=== PATIENT | male | born 1970 | race Caucasian/White ===

== ENCOUNTER 2018-07-10 17:05 | Inpatient (IN) | payer MEDICAID ==
[~2018-07-10] VITALS: Ht 175.3 cm; Wt 65.8 kg
[2018-07-10] MEDS ORDERED: cloNIDine HCL 0.1 MG TAB ONE (17:19)
[2018-07-10] MEDS ORDERED: cloNIDine HCL 0.1 MG TAB PO ONE (17:30)
[2018-07-10 18:26] LABS: Basophils # (auto) 0 uL; Basophils % (auto) 0.4 % (0.0-2.0); Eosinophils # (auto) 0.1 uL; Eosinophils % (auto) 1.2 % (0.0-7.0); Hematocrit 52.4 % (41.0-53.0); Lymphocytes # (auto) 1.4 uL; Lymphocytes % (auto) 13.2 % (10.0-50.0); Mean Corpuscular Hemoglobin 29.2 pg (28.0-32.0); Mean Corpuscular Hgb Conc. 34.4 g/dL (32.0-36.0); Monocytes # (auto) 0.7 uL; Monocytes % (auto) 6.3 % (0.0-12.0); Neutrophils # (auto) 8.6 uL; Neutrophils % (auto) 78.9 % (37.0-80.0); Nucleated Red Blood Cells % 0.1 %; Platelet Count (auto) 283 10^3/uL (140-450); Red Blood Cells 6.16 10^6/uL (4.5-5.90); Red Cell Distribution Width 13.9 % (11.8-14.3)
[2018-07-10 18:38] LABS: Alanine Aminotransferase 30 U/L (16-61); Albumin 4.3 g/dL (3.4-5.0); Anion Gap 10 (5-15); Aspartate Aminotransferase 22 U/L (15-37); BUN/Creatinine Ratio 10.1; Blood Urea Nitrogen 18 mg/dL (7-18); Calcium 8.8 mg/dL (8.5-10.1); Carbon Dioxide 24 mmol/L (21-32); Chloride 100 mmol/L (98-107); GFR African American 53 mL/min; GFR Non-African American 44 mL/min; Glucose 95 mg/dL (74-106); Potassium 3.8 mmol/L (3.5-5.1); Sodium 134 mmol/L (136-145)
[2018-07-10 18:41] LABS: Alkaline Phosphatase 106 U/L (45-117); Bilirubin, Total 0.9 mg/dL (0.2-1.0); Total Protein 8.9 g/dL (6.4-8.2)
[2018-07-10 18:44] LABS: Amylase 36 U/L (25-115); Lipase 128 U/L (73-393); Magnesium 1.5 mg/dL (1.6-2.6)
[2018-07-10] MEDS ORDERED: LABETALOL HCL 5 MG/ML ML 20ML VIAL IV ONE (19:15)
[2018-07-10] MEDS ORDERED: MAGNESIUM SULFATE 1GM/100ML 200 ML IV ONE (19:16)
[2018-07-10 19:18] LABS: INR 0.97 (0.9-1.15); Partial Thromboplastin Time 33.6 sec (23.78-33.04); Prothrombin Time 10.4 sec (9.27-12.13)
[2018-07-10] MEDS: MAGNESIUM SULFATE 1GM/100ML 100 ML IV SCH ×2 (19:36→20:15)
[2018-07-10] MEDS ORDERED: MAGNESIUM SULFATE 1GM/100ML 100 ML IV SCH (21:45)
[2018-07-10] MEDS ORDERED: TEMAZEPAM 15 MG CAP PO PRN (22:15)
[2018-07-10] MEDS ORDERED: cloNIDine HCL 0.1 MG TAB PO PRN (22:15)
[2018-07-10] MEDS ORDERED: HYDROcodone-ACET 5/325MG TAB PO PRN (22:15)
[2018-07-10] MEDS ORDERED: ACETAMINOPHEN 325 MG TAB PO PRN (22:15)
[2018-07-10] MEDS ORDERED: ONDANSETRON HCL 4 MG/2 ML VIAL IV PRN (22:15)
[2018-07-10] MEDS ORDERED: hydrALAZINE HCL 20 MG/ML VL IV ONE (22:30)
[2018-07-10 22:50] VITALS: BP 164/106
[2018-07-10] MEDS ORDERED: ATOR10TA PO (23:38)
[2018-07-11 04:37] VITALS: BP 145/90
[2018-07-11 05:43] LABS: Basophils # (auto) 0.1 uL; Basophils % (auto) 0.8 % (0.0-2.0); Eosinophils # (auto) 0.2 uL; Eosinophils % (auto) 2.6 % (0.0-7.0); Hematocrit 45.1 % (41.0-53.0); Hemoglobin 15.7 g/dL (13.5-17.5); Lymphocytes # (auto) 1.8 uL; Lymphocytes % (auto) 23.2 % (10.0-50.0); Mean Corpuscular Hemoglobin 29.1 pg (28.0-32.0); Mean Corpuscular Hgb Conc. 34.9 g/dL (32.0-36.0); Mean Corpuscular Volume 83.5 fL (80.0-100.0); Monocytes # (auto) 0.7 uL; Monocytes % (auto) 8.7 % (0.0-12.0); Neutrophils % (auto) 64.7 % (37.0-80.0); Nucleated Red Blood Cells % 0.1 %; Platelet Count (auto) 227 10^3/uL (140-450); Red Cell Distribution Width 13.8 % (11.8-14.3); White Blood Cell 7.7 10^3/uL (4.4-10.8)
[2018-07-11 06:02] LABS: Albumin 3.7 g/dL (3.4-5.0); BUN/Creatinine Ratio 15.7; Calcium 8.3 mg/dL (8.5-10.1); Potassium 3.7 mmol/L (3.5-5.1)
[2018-07-11 06:05] LABS: Bilirubin, Total 0.5 mg/dL (0.2-1.0); Total Protein 7.2 g/dL (6.4-8.2)
[2018-07-11 07:32] LABS: Urine Bacteria NONE SEEN /hpf (None Seen); Urine Blood Negative /uL (Negative); Urine Mucus FEW (None Seen); Urine Specific Gravity 1.032 (1.001-1.035); Urine WBC 2 /hpf (0 - 3)
[2018-07-11 07:56] VITALS: BP 157/97
[2018-07-11 08:00] VITALS: BP 155/103
[2018-07-11] MEDS: FAMOTIDINE 20 MG TAB PO SCH ×2 (09:32→21:43)
[2018-07-11 11:34] VITALS: BP 153/107
[2018-07-11] MEDS ORDERED: PANT40TA2 PO (12:42)
[2018-07-11] MEDS ORDERED: ASPI81CH43 PO (12:42)
[2018-07-11] MEDS ORDERED: LISI-646 PO (12:42)
[2018-07-11] MEDS ORDERED: LISINOPRIL 10 MG TAB PO ONE ×2 (12:45→14:15)
[2018-07-11] MEDS ORDERED: ASPirin-EC 81 mg tab PO ONE (14:15)
[2018-07-11] MEDS ORDERED: METOPROLOL TARTRATE 25 MG TAB PO ONE (14:15)
[2018-07-11 16:32] VITALS: BP 125/77
[2018-07-11 18:33] LABS: Alcohol, Urine < 3.0 mg/dL (0-5); Amphetamine Screen, Urine POSITIVE (NEGATIVE); Barbiturate Scree,Urine NEGATIVE (NEGATIVE); Benzodiazephine Screen, Urine NEGATIVE (NEGATIVE); Cannabinoid Screen, Urine POSITIVE (NEGATIVE); Cocaine Screen, Urine NEGATIVE (NEGATIVE); Opiate Scree,Urine NEGATIVE (NEGATIVE); Phencyclidine Screen, Urine NEGATIVE (NEGATIVE)
[2018-07-11] MEDS: METOPROLOL TARTRATE 25 MG TAB PO SCH (21:43)
[2018-07-11 22:00] VITALS: BP 109/78
[2018-07-11] MEDS ORDERED: ATORVASTATIN 20 MG TAB PO SCH (22:00)
[2018-07-12 05:00] VITALS: BP 124/81
[2018-07-12 07:32] LABS: Potassium 4.4 mmol/L (3.5-5.1)
[2018-07-12 07:41] LABS: Albumin 3.7 g/dL (3.4-5.0); Bilirubin, Total 0.7 mg/dL (0.2-1.0); Calcium 9.2 mg/dL (8.5-10.1); Total Protein 7.5 g/dL (6.4-8.2)
[2018-07-12 08:43] VITALS: BP 121/75
[2018-07-12] MEDS: FAMOTIDINE 20 MG TAB PO SCH (09:31)
[2018-07-12] MEDS: METOPROLOL TARTRATE 25 MG TAB PO SCH (09:32)
[2018-07-12] MEDS ORDERED: LISINOPRIL 20 MG TAB PO SCH (10:00)
[2018-07-12] MEDS ORDERED: ASPirin-EC 81 mg tab PO SCH (10:00)
[2018-07-12] MEDS ORDERED: LISINOPRIL 10 MG TAB PO SCH (10:00)
[2018-07-12] MEDS ORDERED: ATOR20TA50 PO (10:07)
[2018-07-12] MEDS ORDERED: LISI10TA6 PO (10:07)
[2018-07-12] MEDS ORDERED: MET25T PO (10:07)
[2018-07-12] MEDS ORDERED: LISI-646 PO (10:09)
[2018-07-12 11:07] VITALS: BP 121/75
[2018-07-12 13:06] VITALS: BP 125/81
== END 2018-07-12 13:03 | disposition home or self-care (01) | DRG 241 ==
LOC: ER 17:09 → OVERFLOW 17:10 → WEST WING 22:39
PROVIDERS: ADMIT Nurse Practitioner; ATTEND Internal Medicine
DX: K29.70 Gastritis, unspecified, without bleeding (principal); N17.0 Acute kidney failure with tubular necrosis; I10 Essential (primary) hypertension; E83.42 Hypomagnesemia; E86.0 Dehydration; F17.200 Nicotine dependence, unspecified, uncomplicated; I12.9 Hypertensive chronic kidney disease with stage 1 through stage 4 chronic kidney disease, or unspecified chronic kidney disease; N18.2 Chronic kidney disease, stage 2 (mild); F15.90 Other stimulant use, unspecified, uncomplicated; F12.90 Cannabis use, unspecified, uncomplicated; Z82.49 Family history of ischemic heart disease and other diseases of the circulatory system; Z86.73 Personal history of transient ischemic attack (TIA), and cerebral infarction without residual deficits; Z87.19 Personal history of other diseases of the digestive system; Z91.19 Patient's noncompliance with other medical treatment and regimen
CPT/HCPCS: 36415; 71046; 74176; 80053; 80061; 80307; 81001; 82150; 83690; 83735; 84443; 84484; 85025; 85610; 85730; 93005; 94761; 96365; 96375

== ENCOUNTER 2019-04-10 18:11 | Emergency (ER) | payer MEDICAID ==
[~2019-04-10] VITALS: Ht 175.3 cm; Wt 74.8 kg
[~2019-04-10 18:11] MED LIST: ASPI81CH43 PO; ATOR20TA50 PO; LISI-646 PO; MET25T PO; PANT40TA2 PO
[2019-04-10] MEDS ORDERED: SODIUM CHLORIDE 0.9% 2,000 ML IV ONE (19:15)
[2019-04-10 19:28] LABS: Basophils # (auto) 0 uL; Basophils % (auto) 0.6 % (0.0-2.0); Eosinophils # (auto) 0.1 uL; Eosinophils % (auto) 1.9 % (0.0-7.0); Hematocrit 42.9 % (41.0-53.0); Hemoglobin 14.1 g/dL (13.5-17.5); Lymphocytes # (auto) 1.6 uL; Lymphocytes % (auto) 20.9 % (10.0-50.0); Mean Corpuscular Hgb Conc. 32.9 g/dL (32.0-36.0); Mean Corpuscular Volume 85.2 fL (80.0-100.0); Monocytes # (auto) 0.6 uL; Monocytes % (auto) 7.7 % (0.0-12.0); Neutrophils # (auto) 5.3 uL; Neutrophils % (auto) 68.9 % (37.0-80.0); Platelet Count (auto) 189 10^3/uL (140-450); Red Blood Cells 5.04 10^6/uL (4.5-5.90); White Blood Cell 7.7 10^3/uL (4.4-10.8)
[2019-04-10 19:45] LABS: Alanine Aminotransferase 33 U/L (16-61); Albumin 3.6 g/dL (3.4-5.0); Anion Gap 9 (5-15); BUN/Creatinine Ratio 10.6; Blood Urea Nitrogen 15 mg/dL (7-18); Carbon Dioxide 24 mmol/L (21-32); Chloride 112 mmol/L (98-107); GFR African American 69 mL/min; GFR Non-African American 57 mL/min; Glucose 99 mg/dL (74-106); Potassium 3.7 mmol/L (3.5-5.1); Sodium 145 mmol/L (136-145)
[2019-04-10 19:51] LABS: Alkaline Phosphatase 78 U/L (45-117); Aspartate Aminotransferase 10 U/L (15-37); Bilirubin, Total 0.4 mg/dL (0.2-1.0); Total Protein 6.9 g/dL (6.4-8.2)
[2019-04-10] MEDS ORDERED: NIFEdipine 10 MG CAP PO ONE (21:15)
[2019-04-11 02:12] VITALS: BP 155/103
== END 2019-04-11 02:23 | disposition home or self-care (01) ==
LOC: EDBD 18:11 → ER 18:12
DX: T67.5XXA Heat exhaustion, unspecified, initial encounter (principal); I10 Essential (primary) hypertension; F17.210 Nicotine dependence, cigarettes, uncomplicated; Z86.73 Personal history of transient ischemic attack (TIA), and cerebral infarction without residual deficits; Z79.82 Long term (current) use of aspirin; Z79.899 Other long term (current) drug therapy
CPT/HCPCS: 36415; 80053; 84484; 85025; 93005; 94761; 99284; J7030

== ENCOUNTER 2019-04-26 21:46 | Emergency (ER) | payer MEDICAID ==
[~2019-04-26] VITALS: Ht 175.3 cm; Wt 70.3 kg
[2019-04-26 22:20] LABS: Basophils # (auto) 0 uL; Basophils % (auto) 0.7 % (0.0-2.0); Eosinophils # (auto) 0.1 uL; Eosinophils % (auto) 1.7 % (0.0-7.0); Hematocrit 44.6 % (41.0-53.0); Hemoglobin 14.9 g/dL (13.5-17.5); Lymphocytes # (auto) 1.3 uL; Lymphocytes % (auto) 20.4 % (10.0-50.0); Mean Corpuscular Hemoglobin 28.4 pg (28.0-32.0); Mean Corpuscular Hgb Conc. 33.4 g/dL (32.0-36.0); Mean Corpuscular Volume 85.2 fL (80.0-100.0); Monocytes # (auto) 0.4 uL; Monocytes % (auto) 5.7 % (0.0-12.0); Neutrophils # (auto) 4.5 uL; Neutrophils % (auto) 71.5 % (37.0-80.0); Nucleated Red Blood Cells % 0.1 %; Platelet Count (auto) 199 10^3/uL (140-450); Red Blood Cells 5.24 10^6/uL (4.5-5.90); Red Cell Distribution Width 14.1 % (11.8-14.3); White Blood Cell 6.3 10^3/uL (4.4-10.8)
[2019-04-26 22:39] LABS: Acetaminophen < 2.0 ug/mL (10-30); Salicylate < 1.7 mg/dL (2.8-20.0)
[2019-04-26 22:40] LABS: Alanine Aminotransferase 33 U/L (16-61); Albumin 3.8 g/dL (3.4-5.0); Anion Gap 7 (5-15); Blood Alcohol < 3.0 mg/dL (0-5); Blood Urea Nitrogen 21 mg/dL (7-18); Calcium 8.9 mg/dL (8.5-10.1); Carbon Dioxide 26 mmol/L (21-32); Chloride 108 mmol/L (98-107); Glucose 131 mg/dL (74-106); Potassium 3.9 mmol/L (3.5-5.1); Sodium 141 mmol/L (136-145)
[2019-04-26 22:43] LABS: Alkaline Phosphatase 72 U/L (45-117); Aspartate Aminotransferase 13 U/L (15-37); BUN/Creatinine Ratio 14.2; Bilirubin, Total 0.6 mg/dL (0.2-1.0); GFR African American 66 mL/min; GFR Non-African American 54 mL/min; Total Protein 7.1 g/dL (6.4-8.2)
[2019-04-26] MEDS ORDERED: SODIUM CHL 0.9% 500 ML IV ONE (23:45)
[2019-04-27] LABS: INR 0.93 (0.9-1.15); Partial Thromboplastin Time 28.2 sec (23.64-32.05)
[2019-04-27 01:00] VITALS: BP 158/97
[2019-04-27] MEDS ORDERED: SODIUM CHLORIDE 0.9% 500 ML IV ONE (01:10)
== END 2019-04-27 01:57 | disposition home or self-care (01) ==
LOC: ER 21:48
DX: N28.9 Disorder of kidney and ureter, unspecified (principal); Z91.81 History of falling
CPT/HCPCS: 36415; 70450; 80053; 80320; 80329; 84484; 85025; 85610; 85730; 94761; 99284; J7040

== ENCOUNTER 2019-05-31 16:18 | Emergency (ER) | payer MEDICAID ==
[~2019-05-31] VITALS: Ht 175.3 cm; Wt 70.3 kg
[2019-05-31] MEDS ORDERED: cloNIDine HCL 0.1 MG TAB ONE (16:27)
[2019-05-31] MEDS ORDERED: cloNIDine HCL 0.1 MG TAB PO ONE (16:30)
[2019-05-31 17:43] LABS: Basophils # (auto) 0.1 uL; Eosinophils # (auto) 0.1 uL; Eosinophils % (auto) 2.4 % (0.0-7.0); Lymphocytes # (auto) 1.1 uL; Lymphocytes % (auto) 18.2 % (10.0-50.0); Mean Corpuscular Hemoglobin 28.9 pg (28.0-32.0); Mean Corpuscular Hgb Conc. 34.1 g/dL (32.0-36.0); Mean Corpuscular Volume 84.8 fL (80.0-100.0); Monocytes # (auto) 0.4 uL; Monocytes % (auto) 6.5 % (0.0-12.0); Neutrophils # (auto) 4.2 uL; Neutrophils % (auto) 71.9 % (37.0-80.0); Platelet Count (auto) 198 10^3/uL (140-450); Red Blood Cells 4.84 10^6/uL (4.5-5.90); Red Cell Distribution Width 13.8 % (11.8-14.3); White Blood Cell 5.9 10^3/uL (4.4-10.8)
[2019-05-31 18:05] LABS: Alanine Aminotransferase 26 U/L (16-61); Aspartate Aminotransferase 17 U/L (15-37); BUN/Creatinine Ratio 12.9; Blood Urea Nitrogen 15 mg/dL (7-18); Calcium 8.7 mg/dL (8.5-10.1); Carbon Dioxide 27 mmol/L (21-32); GFR African American 87 mL/min; GFR Non-African American 72 mL/min; Glucose 92 mg/dL (74-106)
[2019-05-31 18:09] LABS: Alkaline Phosphatase 80 U/L (45-117); Anion Gap 7 (5-15); Bilirubin, Total 0.6 mg/dL (0.2-1.0); Chloride 104 mmol/L (98-107); Potassium 4.2 mmol/L (3.5-5.1); Sodium 138 mmol/L (136-145); Total Protein 7.4 g/dL (6.4-8.2)
[2019-05-31] MEDS ORDERED: KETOROLAC TROMETH 30 MG/ML 1ML VIAL IV ONE (20:15)
[2019-05-31 21:04] VITALS: BP 146/94
== END 2019-05-31 20:14 | disposition home or self-care (01) ==
LOC: ER 16:18 → EDUNIT# 16:18 → EDBD 16:18 → ER 20:14
DX: I16.0 Hypertensive urgency (principal); M79.672 Pain in left foot; M79.671 Pain in right foot; I10 Essential (primary) hypertension; Z79.82 Long term (current) use of aspirin; Z79.899 Other long term (current) drug therapy; Z86.73 Personal history of transient ischemic attack (TIA), and cerebral infarction without residual deficits
CPT/HCPCS: 36415; 80053; 84484; 85025; 93005; 96374; 99284; J1885

== ENCOUNTER 2019-06-14 10:01 | Emergency (ER) | payer MEDICAID ==
[~2019-06-14] VITALS: Ht 175.3 cm; Wt 71.2 kg
[2019-06-14 11:14] VITALS: BP 174/93
== END 2019-06-14 11:30 | disposition home or self-care (01) ==
LOC: ER 10:01
DX: S96.912A Strain of unspecified muscle and tendon at ankle and foot level, left foot, initial encounter (principal); S96.911A Strain of unspecified muscle and tendon at ankle and foot level, right foot, initial encounter; I10 Essential (primary) hypertension; Z79.82 Long term (current) use of aspirin; Z79.899 Other long term (current) drug therapy; Z86.73 Personal history of transient ischemic attack (TIA), and cerebral infarction without residual deficits; X58.XXXA Exposure to other specified factors, initial encounter; Y93.89 Activity, other specified; Y99.8 Other external cause status; Y92.89 Other specified places as the place of occurrence of the external cause

== ENCOUNTER 2022-06-23 01:01 | Emergency (ER) | payer MEDICARE, MEDICAID ==
[~2022-06-23] VITALS: Ht 175.3 cm; Wt 66.8 kg
[~2022-06-23 01:01] MED LIST changes: -LISI-646 PO; +LISI20TA28 PO
[2022-06-23 03:16] LABS: Basophils # (auto) 0.1 10 ^3/uL (0-0.2); Basophils % (auto) 0.7 % (0.0-2.0); Eosinophils # (auto) 0.3 10 ^3/uL (0-0.8); Hematocrit 50.1 % (41.0-53.0); Hemoglobin 16.5 g/dL (13.5-17.5); Lymphocytes # (auto) 1.5 10 ^3/uL (0.4-5.4); Lymphocytes % (auto) 17.9 % (10.0-50.0); Mean Corpuscular Hemoglobin 27.5 pg (28.0-32.0); Mean Corpuscular Volume 83.4 fL (80.0-100.0); Monocytes # (auto) 0.6 10 ^3/uL (0-1.3); Monocytes % (auto) 6.4 % (0.0-12.0); Neutrophils # (auto) 6.2 10 ^3/uL (1.6-8.6); Nucleated Red Blood Cells % 0.1 %; White Blood Cell 8.6 10^3/uL (4.4-10.8)
[2022-06-23 03:36] LABS: Albumin 4.1 g/dL (3.4-5.0); BUN/Creatinine Ratio 16.1; Calcium 9.4 mg/dL (8.5-10.1)
[2022-06-23 03:39] LABS: Bilirubin, Total 0.6 mg/dL (0.2-1.0); Total Protein 7.9 g/dL (6.4-8.2)
[2022-06-23] MEDS ORDERED: DICYCLOMINE HCL (10MG/ML) 2 ML AMPULE IM ONE (05:00)
[2022-06-23 05:10] VITALS: BP 148/102
== END 2022-06-23 05:17 | disposition home or self-care (01) ==
LOC: ER 01:02
DX: R10.13 Epigastric pain (principal); I10 Essential (primary) hypertension; Z86.73 Personal history of transient ischemic attack (TIA), and cerebral infarction without residual deficits
CPT/HCPCS: 36415; 74176; 80053; 85025; 96372; 99284; J0500

== ENCOUNTER 2022-09-11 16:14 | Emergency (ER) | payer MEDICARE, MEDICAID ==
[~2022-09-11] VITALS: Ht 175.3 cm; Wt 150.0 kg
[2022-09-11 18:09] LABS: Basophils # (auto) 0 10 ^3/uL (0-0.2); Basophils % (auto) 0.4 % (0.0-2.0); Eosinophils # (auto) 0 10 ^3/uL (0-0.8); Eosinophils % (auto) 0.5 % (0.0-7.0); Hematocrit 43.9 % (41.0-53.0); Hemoglobin 14.8 g/dL (13.5-17.5); Lymphocytes # (auto) 0.8 10 ^3/uL (0.4-5.4); Lymphocytes % (auto) 8.9 % (10.0-50.0); Mean Corpuscular Hemoglobin 28.3 pg (28.0-32.0); Mean Corpuscular Hgb Conc. 33.8 g/dL (32.0-36.0); Mean Corpuscular Volume 83.8 fL (80.0-100.0); Monocytes # (auto) 0.7 10 ^3/uL (0-1.3); Monocytes % (auto) 8.1 % (0.0-12.0); Neutrophils # (auto) 7.3 10 ^3/uL (1.6-8.6); Neutrophils % (auto) 82.1 % (37.0-80.0); Red Blood Cells 5.24 10^6/uL (4.5-5.90); Red Cell Distribution Width 13.2 % (11.8-14.3); White Blood Cell 8.9 10^3/uL (4.4-10.8)
[2022-09-11 18:13] LABS: Albumin 3.7 g/dL (3.4-5.0); BUN/Creatinine Ratio 23.6; Calcium 9.6 mg/dL (8.5-10.1); Potassium 4.3 mmol/L (3.5-5.1)
[2022-09-11 18:16] LABS: Bilirubin, Total 0.6 mg/dL (0.2-1.0); Total Protein 6.9 g/dL (6.4-8.2)
[2022-09-11 18:28] LABS: INR 0.93 (0.9-1.15); Partial Thromboplastin Time 25.7 sec (24.6-33.4)
[2022-09-11] MEDS ORDERED: MORPHINE SULFATE 4 MG/ML SYR/VIAL IV ONE (19:45)
[2022-09-11] MEDS ORDERED: ONDANSETRON HCL 4 MG/2 ML VIAL IV ONE (19:45)
[2022-09-11 20:19] VITALS: BP 155/106
[2022-09-11] MEDS ORDERED: HYDR-4902 PO (21:57)
== END 2022-09-11 21:58 | disposition home or self-care (01) ==
LOC: ER 16:14
DX: M79.672 Pain in left foot (principal); M79.671 Pain in right foot; E78.5 Hyperlipidemia, unspecified; I10 Essential (primary) hypertension; Z86.73 Personal history of transient ischemic attack (TIA), and cerebral infarction without residual deficits
CPT/HCPCS: 36415; 73700; 80053; 85025; 85610; 85730; 96374; 96375; 99284; J2270; J2405

== ENCOUNTER 2022-09-29 13:40 | Emergency (ER) | payer MEDICARE, MEDICAID ==
[~2022-09-29] VITALS: Ht 175.3 cm; Wt 66.8 kg
[~2022-09-29 13:40] MED LIST changes: +HYDR-4902 PO
[2022-09-29 14:06] VITALS: BP 141/100
[2022-09-29 15:31] LABS: Basophils # (auto) 0.1 10 ^3/uL (0-0.2); Basophils % (auto) 0.6 % (0.0-2.0); Eosinophils # (auto) 0.1 10 ^3/uL (0-0.8); Eosinophils % (auto) 0.5 % (0.0-7.0); Hematocrit 42.3 % (41.0-53.0); Hemoglobin 14.4 g/dL (13.5-17.5); Lymphocytes # (auto) 1.7 10 ^3/uL (0.4-5.4); Mean Corpuscular Hemoglobin 28.1 pg (28.0-32.0); Mean Corpuscular Volume 82.7 fL (80.0-100.0); Monocytes % (auto) 8.1 % (0.0-12.0); Neutrophils # (auto) 9.9 10 ^3/uL (1.6-8.6); Neutrophils % (auto) 77.8 % (37.0-80.0); Nucleated Red Blood Cells % 0.2 %; Red Blood Cells 5.12 10^6/uL (4.5-5.90); Red Cell Distribution Width 13.4 % (11.8-14.3); White Blood Cell 12.7 10^3/uL (4.4-10.8)
[2022-09-29 15:47] LABS: Albumin 3.5 g/dL (3.4-5.0); Calcium 9.9 mg/dL (8.5-10.1); Potassium 4.3 mmol/L (3.5-5.1)
[2022-09-29 15:49] LABS: BUN/Creatinine Ratio 21.2
[2022-09-29 15:52] LABS: Bilirubin, Total 0.2 mg/dL (0.2-1.0); Total Protein 7.2 g/dL (6.4-8.2)
[2022-09-29] MEDS ORDERED: CEPH500C PO (16:11)
== END 2022-09-29 17:05 | disposition home or self-care (01) ==
LOC: ER 13:40
DX: L03.115 Cellulitis of right lower limb (principal); L03.116 Cellulitis of left lower limb; I10 Essential (primary) hypertension; E78.5 Hyperlipidemia, unspecified; Z86.73 Personal history of transient ischemic attack (TIA), and cerebral infarction without residual deficits; Z79.82 Long term (current) use of aspirin; Z79.899 Other long term (current) drug therapy
CPT/HCPCS: 36415; 73700; 80053; 85025; 85652

== ENCOUNTER 2024-12-25 17:54 | Inpatient (IN) | payer MEDICAID, MEDICARE, OTHER ==
[~2024-12-25] VITALS: Ht 123.4 cm; Wt 60.4 kg
[~2024-12-25 17:54] MED LIST changes: +CEPH500C PO; -LISI20TA28 PO; +LISI20TA56 PO
--- NOTE | 2024-12-25 18:25 | ECG ---
[facility] Test Date: 2024-12-25 Test Time: 18:00:21 Pat Name: TAINA QUILES Department: ED Room: 0219T Gender: M [employer]inder [employer] Operator: LETHA : 1970 Requested By: TRISH VILLAFUERTE Order Number: [id number] Reading MD: Cj Connelly Measurements Intervals [place] Rate: 96 P: 75 [place]: 135 QRS: 54 QRSD: 143 T: 206 QT: 403 QTc: 510 Interpretive Statements Sinus rhythm Right atrial enlargement Left bundle branch block Baseline wander in lead(s) V3 Electronically Signed On 12-28-2024 22:03:44 PDT by Cj Connelly Please click the below link to view image of tracing.
[2024-12-25] MEDS: PIPERACILLIN-TAZO 4.5GM 100 ML IV ONE (19:23)
[2024-12-25] MEDS: SODIUM CHLORIDE 0.9% 1,550 ML IV ONE (19:23)
--- NOTE | 2024-12-25 19:33 | ED.PDOC ---
History of Present Illness HPI Comments 54 y/o M is BIBA with c/o shortness of breath and generalized weakness, today. Per EMS report, patient's landlord called after finding patient, endorsing on patient complaining of symptoms since this unprovoked onset . On scene, patient was noted to have been lethargic and slow to respond but still able to answer questions, with a Spo2 in the mid-80's. En route, patient was stated to have been given breathing treatment. At time of assessment, patient reports no chest pain, cough, congestion, fever, chills, or other associated symptoms or modifies at this time. Chief Complaint: General Weakness Time Seen by MD: 18:20 Primary Care Provider: UNKNOWN Reviewed Notes: Nurses Notes, Medications, Allergies Allergies: Coded Allergies: NO KNOWN ALLERGIES (Unverified , 07/10/18) Home Meds Active Scripts Cephalexin Monohydrate (Cephalexin) 500 Mg Cap, 1 CAP PO TID, #30 CAP Prov:GRANT HANSON MD 09/29/22 Hydrocodone-Acetaminophen (Hydrocodone Bitartrate/AC 5-325 mg) 1 Tab Tab, 1 TAB PO Q6HP PRN for 5 Days, #20 TAB Prov:GRANT HANSON MD 09/11/22 Lisinopril (Lisinopril) 20 Mg Tab, 1 TAB PO DAILY, #60 TAB 0 Refills Prov:ATA CROCKETT MD 07/12/18 Metoprolol Tartrate (Lopressor) 25 Mg Tb, 25 MG PO BID, #120 Prov:ATA CROCKETT MD 07/12/18 Atorvastatin Calcium (ATORVASTATIN CALCIUM) 20 Mg Tab, 20 MG PO HS, #60 TAB Prov:ATA CROCKETT MD 07/12/18 Pantoprazole Sodium Sesquihydr (Protonix) 40 Mg Tab, 40 MG PO DAILY, #60 TAB Prov:ATA CROCKETT MD 07/11/18 Aspirin (Asa) 81 Mg Ch, 81 MG PO DAILY, #60 Prov:ATA CROCKETT MD 07/11/18 Information Source: Patient, Emergency Med Personnel Mode of Arrival: EMS Past Medical History PAST MEDICAL HISTORY: CVA, High Lipids, HTN, TIA Surgical History (Other): bilateral BKA Family History Family History: Reviewed,noncontributory to illness Social History Smoker: Non-Smoker Alcohol: Denies ETOH Use Drugs: Denies Drug Use Lives In: Home All Other Systems: Reviewed and Negative (Comprehensive systems review obtained and negative except for what is stated in the HPI.) Physical Exam General Appearance: No Apparent Distress, Normal HEENT: Normal ENT Inspection, Pharynx Normal, TMs Normal Neck: Full Range of Motion, Non-Tender, Normal, Normal Inspection Respiratory: Chest Non-Tender, No Accessory Muscle Use, No Respiratory Distress, Other (bilateral coarse breathe sounds) Cardiovascular: No Edema, No JVD, No Murmur, No Gallop, Normal Peripheral Pulses, Regular Rate/Rhythm Breast Exam: Deferred Gastrointestinal: No Organomegaly, Non Tender, No Pulsatile Mass, Normal Bowel Sounds, Soft Genitalia: Deferred Pelvic: Deferred Rectal: Deferred Extremities: No calf tenderness, Normal capillary refill, Normal inspection, Normal range of motion, Non-tender, No pedal edema, Other (bilateral below knee ampuations) Musculoskeletal : Apperance: Normal Neurologic: Alert, refrigerated company driver II-XII nml as Tested, No Motor Deficits, Normal Affect, Normal Mood, No Sensory Deficits Cerebellar Function: Normal Reflexes: Normal Skin: Dry, Normal Color, Warm Lymphatic: No Adenopathy Was a procedure done? Was a procedure done?: No EKG EKG : Pulse Rate (adult): 96 [place]: Normal Cardiac Rhythm: NSR Block: LBBB Hypertrophy: LUDMILA ST: Normal Differential Dx Considerations may include: URI, viral syndrome, PNA, dehydration, electrolyte imbalance, sepsis, among others X-Ray, Labs, Meds, VS Vital Signs Date Time Temp Pulse Resp B/P (MAP) Pulse Ox O2 Delivery O2 Flow Rate FiO2 12/25/24 23:00 119 15 135/89 (104) 97 12/25/24 22:14 117 14 98 Nasal Cannula* 2 28 12/25/24 20:56 97.9 105 14 127/89 (102) 99 97.9 12/25/24 19:40 97.5 97 20 137/89 (105) 91 97.5 12/25/24 19:33 96 12/25/24 18:15 97.5 102 20 159/116 (130) 99 97.5 12/25/24 18:00 96 Lab Test 12/25/24 22:57 12/25/24 21:05 12/25/24 18:59 Range/Units Lactic Acid Level 2.6 *H 2.7 *H 0.4-2.0 mmol/L Troponin I High Sensitivity 125 *H 121 *H 137 *H </=54 ng/L White Blood Count 18.1 H 4.4-10.8 10^3/uL Red Blood Count 5.97 H 4.5-5.90 10^6/uL Hemoglobin 16.2 13.5-17.5 g/dL Hematocrit 52.5 41.0-53.0 % Mean Corpuscular Volume 87.9 80.0-100.0 fL Mean Corpuscular Hemoglobin 27.0 L 28.0-32.0 pg Mean Corpuscular Hemoglobin Concent 30.8 L 32.0-36.0 g/dL Red Cell Distribution Width 15.3 H 11.8-14.3 % Platelet Count 183 140-450 10^3/uL Mean Platelet Volume 7.9 6.9-10.8 fL Neutrophils (%) (Auto) 83.7 H 37.0-80.0 % Lymphocytes (%) (Auto) 7.1 L 10.0-50.0 % Monocytes (%) (Auto) 8.3 0.0-12.0 % Eosinophils (%) (Auto) 0.7 0.0-7.0 % Basophils (%) (Auto) 0.2 0.0-2.0 % Neutrophils # (Auto) 15.2 H 1.6-8.6 10 ^3/uL Lymphocytes # (Auto) 1.3 0.4-5.4 10 ^3/uL Monocytes # (Auto) 1.5 H 0-1.3 10 ^3/uL Eosinophils # (Auto) 0.1 0-0.8 10 ^3/uL Basophils # (Auto) 0 0-0.2 10 ^3/uL Nucleated Red Blood Cells 0.1 % Sodium Level 138 136-145 mmol/L Potassium Level 4.8 3.5-5.1 mmol/L Chloride Level 104 98-107 mmol/L Carbon Dioxide Level 24 20-31 mmol/L Anion Gap 10 5-15 Blood Urea Nitrogen 13 9-23 mg/dL Creatinine 1.25 0.700-1.30 mg/dL Glomerular Filtration Rate Calc 69 >90 mL/min BUN/Creatinine Ratio 10.4 10.0-20.0 Serum Glucose 91 74-106 mg/dL Calcium Level 9.2 8.7-10.4 mg/dL Total Bilirubin 0.9 0.2-1.0 mg/dL Aspartate Amino Transferase (AST) 34 13-40 U/L Alanine Aminotransferase (ALT) 21 7-40 U/L Alkaline Phosphatase 123 H 46-116 U/L Total Protein 7.1 5.7-8.2 g/dL Albumin 4.3 3.2-4.8 g/dL Plasma/Serum Blood Alcohol < 3.0 <10 mg/dL Ammonia < 10 L 11-32 umol/L Current Medications Medications (Trade) Dose Ordered Sig/Connie Route Start Time Stop Time Status Last Admin Sodium Chloride 1,550 ml @ 1,550 mls/hr ONCE ONCE IV 12/25/24 18:45 12/25/24 19:44 DC 12/25/24 19:23 Piperacillin Sod/ Tazobactam Sod 100 ml @ 100 mls/hr ONCE ONCE IV 12/25/24 19:00 12/25/24 19:59 DC 12/25/24 19:23 Time of 1ST Reevaluation: 18:50 Reevaluation 1ST: Unchanged Reevaluation 2ND: Improved Patient Education/Counseling: Diagnosis, Treatment, Prognosis, Need For Follow Up Family Education/Counseling: No Family Present Additional Information Previous visit documents reviewed: September 29, 2022 encounter for bilateral foot pain The following tests were ordered, and results were reviewed by me: EKG, CBC, CMP, ammonia, drug screen, urine ethanol, accucheck, CT head w/o contrast, CXR, troponin, UA, lactic acid w/reflex, EKG, urine bacterial culture Additional Information was gathered from interviewing the following independent historians: EMS I reviewed and agreed with the following test results read by other providers: CT head w/o contrast, CXR I discussed treatment and results with medical personnel and: Patient Sepsis Sepsis Reasesment Focused Exam Sepsis focused exam: focus exam completed (pt is alert, capr refill<2 secs, vss stable, HR 199), time: (2331) Departure 1 Departure Time of Disposition: 23:34 Impression: Primary Impression: Pneumonia Qualified Codes: J18.9 - Pneumonia, unspecified organism Additional Impressions: Sepsis Qualified Codes: A41.9 - Sepsis, unspecified organism Generalized weakness Metabolic encephalopathy Disposition: 09 ADMITTED INPATIENT Admit to: [facility] Condition: Serious Discharged With: Self Critical Care Note Critical Care Time?: Yes (90 min-critical care time only) Critical care comment: Due to concerns for patients condition deteriorating, the care required my highest level of attention and readiness to intervene. I assessed the patient, reviewed the medical records, ordered the appropriate tests and treatments, then reassessed for results and responsiveness. I communicated with medical personnel and consultants and formulated a plan of care. Total critical care time excludes any procedures Stability Stability form required: No Heart Score Heart Score: Heart Score Response (Comments) Value History Slightly Suspicious 0 EKG Normal 0 Age 45-64 1 Risk Factors >3 or Hx ASHD 2 Troponin 1-2 x's Normal limit 1 Total 4 I personally scribed for TRISH VILLAFUERTE MD ([email or web address]) on 12/25/24 at 19:33. Electronically submitted by Reji Lee ([email or web address]). TRISH VILLAFUERTE MD Dec 25, 2024 19:33
--- NOTE | 2024-12-25 19:34 | DVH ---
EXAM: CT HEAD WITHOUT CONTRAST INDICATION: altered mental status TECHNIQUE: CT of the head without intravenous contrast. Radiation Dose : 1. Head: CT Dose: CTDI volume is 50.75 mGy. Dose-length product is 813.66 mGy*cm The dose indicators for CT are the volume Computed Tomography (CT) Dose Index (CTDIvol) and the Dose Length Product (DLP), and are measured in units of mGy and mGy-cm, respectively. These indicators are not patient dose, but values generated from the CT scanner acquisition factors. The report includes radiation exposure data for exposures received during this examination. COMPARISON: No prior studies of the head FINDINGS: There is mild cortical atrophy and there is evidence for old lacunar infarcts involving the heads of caudate bilaterally and is evidence for ischemia possible small infarcts involving the external capsu les bilaterally more extensive on the left than the right. There is also some evidence for lacunar in farcts involving the right and left thalamus. There is also evidence for old infarcts involving the w shantal matter of the putamen. No acute infarcts or intracranial hemorrhage are appreciated. Midline susi fts or focal mass effects the hippocampal structures are symmetric. IMPRESSION: Evidence for extensive ischemic disease as indicated by multiple infarcts in the basal ganglia bilate ral thalamus and in the white matter of the putamen. Follow-up MRI examination is suggested No acute infarcts appreciated this time Radiation optimization: All CT scans at this facility use at least one of these dose optimization mario hniques: automated exposure control mA and/or kV adjustment per patient size (includes targeted exam s where dose is matched to clinical indication) or iterative reconstruction.
--- NOTE | 2024-12-25 19:46 | DVH ---
CHEST RADIOGRAPH Indication: sob Technique: Single frontal view of the chest was obtained Comparison: None FINDINGS: Lines and Tubes: None Lungs: Ill-defined density in the left mid lung field. This may represent airspace disease or ill-de fined mass. Pleura: No effusion. No pneumothorax. Cardiomediastinal contours: Unremarkable Bones: No acute osseous abnormality. IMPRESSION: 1. Possible left lower lung field airspace disease or ill-defined mass. HS:Y
[2024-12-25 21:21] LABS: Basophils # (auto) 0 10 ^3/uL (0-0.2); Basophils % (auto) 0.2 % (0.0-2.0); Eosinophils # (auto) 0.1 10 ^3/uL (0-0.8); Eosinophils % (auto) 0.7 % (0.0-7.0); Hematocrit 52.5 % (41.0-53.0); Hemoglobin 16.2 g/dL (13.5-17.5); Lymphocytes # (auto) 1.3 10 ^3/uL (0.4-5.4); Lymphocytes % (auto) 7.1 % (10.0-50.0); Mean Corpuscular Hgb Conc. 30.8 g/dL (32.0-36.0); Mean Corpuscular Volume 87.9 fL (80.0-100.0); Monocytes # (auto) 1.5 10 ^3/uL (0-1.3); Monocytes % (auto) 8.3 % (0.0-12.0); Neutrophils # (auto) 15.2 10 ^3/uL (1.6-8.6); Neutrophils % (auto) 83.7 % (37.0-80.0); Nucleated Red Blood Cells % 0.1 %; Platelet Count (auto) 183 10^3/uL (140-450); Red Blood Cells 5.97 10^6/uL (4.5-5.90); Red Cell Distribution Width 15.3 % (11.8-14.3); White Blood Cell 18.1 10^3/uL (4.4-10.8)
[2024-12-25 21:36] LABS: Alanine Aminotransferase 21 U/L (7-40); Albumin 4.3 g/dL (3.2-4.8); Anion Gap 10 (5-15); Aspartate Aminotransferase 34 U/L (13-40); BUN/Creatinine Ratio 10.4 (10.0-20.0); Bilirubin, Total 0.9 mg/dL (0.2-1.0); Blood Urea Nitrogen 13 mg/dL (9-23); Calcium 9.2 mg/dL (8.7-10.4); Carbon Dioxide 24 mmol/L (20-31); Chloride 104 mmol/L (98-107); Glucose 91 mg/dL (74-106); Potassium 4.8 mmol/L (3.5-5.1); Sodium 138 mmol/L (136-145); Total Protein 7.1 g/dL (5.7-8.2)
[2024-12-25 21:56] LABS: Alkaline Phosphatase 123 U/L (46-116); Blood Alcohol < 3.0 mg/dL (<10)
[2024-12-25 21:59] LABS: Lactic Acid w/Reflex 2.7 mmol/L (0.4-2.0)
[2024-12-25 22:14] VITALS: PULSE 117; RESP 14; O2SAT 98
[2024-12-25 23:28] LABS: Lactic Acid w/Reflex 2.6 mmol/L (0.4-2.0)
[2024-12-26] VITALS (7 sets, daily range): BP systolic 120–136; BP diastolic 77–84; PULSE 78–124; RESP 1–23; TEMP 98.7–99.3; O2SAT 94–98
[2024-12-26] MEDS: SODIUM CHLORIDE 0.9% 500 ML IV ONE (03:28)
[2024-12-26] MEDS: AMIODARONE BOLUS KIT 100 ML IV ONE (05:04)
[2024-12-26] MEDS ORDERED: VANCOMYCIN PER PHARMACY 0 MG IV SCH (05:30)
--- NOTE | 2024-12-26 05:40 | DVHHPRES ---
History of Present Illness Resident Creating Document: MARGO MONTESINOS RESIDENT Reason for Visit: [place] History of Present Illness Patient is a 54-year-old male was brought in via the ambulance with a chief complaint of shortness of breaths. Patient is unable to give comprehensive history therefore information was taken from the EMS reports. Per EMS report, patient's landlord called after finding patient notable for short of breath. On scene, patient was noted to have been lethargic and slow to respond but still able to answer questions, with a Spo2 in the mid-80's. En route, patient received breathing treatment. At time of assessment, patient reports no chest pain, cough, congestion, fever, Possible left lower lung field airspace disease or ill-defined mass. Past medical history: Hypertension, CVA ischemic colitis, frostbite Past Surgical History: Below bilateral [id number] 2022 due to frostbite Social History: lives at home with sisterAnanya. Positive for tobacco use, occasionally drinks alcohol, positive for marijuana and amphetamine use. Family history: noncontributory Review of Systems Review of Systems Constitutional: Denies fever no chills no feeling of malaise HEENT: Denies headache, ear pain, ear discharges, conjunctivitis, nasal discharge throat pain Cardiovascular: Denies chest pain, palpitation, orthopnea, PND, or pedal edema Respiratory: Denies shortness of breath, cough cough, sputum production, hemoptysis, GI: Denies abdominal pain, nausea, vomiting, diarrhea, hematemesis, hematochezia, : Denies frequency, urgency, hematuria, Endocrine: Denies unintentional weight gain or weight loss, feeling of hot flashes, [place]: Denies easy bruising, bleeding disorders, epistaxis Musculoskeletal: Denies joint pains, muscle aches Psych: No evidence of depression, connie, suicidal ideation Allergies: Coded Allergies: NO KNOWN ALLERGIES (Unverified , 07/10/18) Medications Current Medications Medications Dose Ordered Sig/Connie Route Start Time Stop Time Status Last Admin Dose Admin Piperacillin Sod/ Tazobactam Sod 100 ml @ 25 mls/hr Q8HR IV 12/26/24 06:00 Exam Vital Signs Vital Signs Date Time Temp Pulse Resp B/P (MAP) Pulse Ox O2 Delivery O2 Flow Rate FiO2 12/26/24 03:11 128 12/25/24 23:00 15 135/89 (104) 97 12/25/24 22:14 Nasal Cannula* 2 28 12/25/24 20:56 97.9 97.9 Exam General Appearance: Alert, Oriented X3, Cooperative, No acute distress, Dishevel, poor oral hygiene HEENT: Atraumatic, PERRLA, EOMI, Mucous membrane moist/pink Respiratory: diminished air entry on the Left side Cardiovascular: Tachycardia; LBBB.; no chest wall tenderness Abdominal: distention, no tenderness, bowel sounds present, no scars noted Extremities: Bilateral amputation, Below the knee Skin: No rashes, No breakdown, No significant lesion Neuro: Normal gait, Normal speech, Strength at 5/5 X4 ext, Normal tone, Sensation intact, Cranial nerves 3-12 NL, Reflexes 2+ Psych/Mental Status: Mental status NL, Mood NL Labs/Xrays Labs Test 12/26/24 01:43 12/25/24 22:57 12/25/24 21:05 12/25/24 18:59 Range/Units Lactic Acid Level 0.9 0.4-2.0 mmol/L Troponin I High Sensitivity 125 *H </=54 ng/L White Blood Count 18.1 H 4.4-10.8 10^3/uL Red Blood Count 5.97 H 4.5-5.90 10^6/uL Hemoglobin 16.2 13.5-17.5 g/dL Hematocrit 52.5 41.0-53.0 % Mean Corpuscular Volume 87.9 80.0-100.0 fL Mean Corpuscular Hemoglobin 27.0 L 28.0-32.0 pg Mean Corpuscular Hemoglobin Concent 30.8 L 32.0-36.0 g/dL Red Cell Distribution Width 15.3 H 11.8-14.3 % Platelet Count 183 140-450 10^3/uL Mean Platelet Volume 7.9 6.9-10.8 fL Neutrophils (%) (Auto) 83.7 H 37.0-80.0 % Lymphocytes (%) (Auto) 7.1 L 10.0-50.0 % Monocytes (%) (Auto) 8.3 0.0-12.0 % Eosinophils (%) (Auto) 0.7 0.0-7.0 % Basophils (%) (Auto) 0.2 0.0-2.0 % Neutrophils # (Auto) 15.2 H 1.6-8.6 10 ^3/uL Lymphocytes # (Auto) 1.3 0.4-5.4 10 ^3/uL Monocytes # (Auto) 1.5 H 0-1.3 10 ^3/uL Eosinophils # (Auto) 0.1 0-0.8 10 ^3/uL Basophils # (Auto) 0 0-0.2 10 ^3/uL Nucleated Red Blood Cells 0.1 % Sodium Level 138 136-145 mmol/L Potassium Level 4.8 3.5-5.1 mmol/L Chloride Level 104 98-107 mmol/L Carbon Dioxide Level 24 20-31 mmol/L Anion Gap 10 5-15 Blood Urea Nitrogen 13 9-23 mg/dL Creatinine 1.25 0.700-1.30 mg/dL Glomerular Filtration Rate Calc 69 >90 mL/min BUN/Creatinine Ratio 10.4 10.0-20.0 Serum Glucose 91 74-106 mg/dL Calcium Level 9.2 8.7-10.4 mg/dL Total Bilirubin 0.9 0.2-1.0 mg/dL Aspartate Amino Transferase (AST) 34 13-40 U/L Alanine Aminotransferase (ALT) 21 7-40 U/L Alkaline Phosphatase 123 H 46-116 U/L Total Protein 7.1 5.7-8.2 g/dL Albumin 4.3 3.2-4.8 g/dL Plasma/Serum Blood Alcohol < 3.0 <10 mg/dL Ammonia < 10 L 11-32 umol/L Assessment/Plan Assessment/Plan Assessment Sepsis Pneumonia Lactic acidosis NSTEMI type 2 Normocyte nemia Bilateral knee amputee History of substance abuse Hypertension, History of CVA History of Ischemic colitis Plan Admit patient on antibiotics Vanco and Zosyn Adequate hydration with LR We check troponin levels, Lactic acid level Recheck the BMI Monitor vitals Pending AM labs DVT prophylaxis: Lovenox Diet: Soft mechanical diet Goal of care discussed more than 25 minute: Code Case and discussed with Dr. Garcia Plan discussed with: Patient, Other (Nurse) My Orders Orders - MARGO MONTESINOS RESIDENT Procedure Category Date Status Time Admit ADMIT 12/26/24 Transmitted 05:20 Code Status CODE 12/26/24 Transmitted 05:20 Vital Signs [facility] 12/26/24 In Process 05:20 Review Orders With [facility] 12/26/24 In Process Adm. 05:20 Notify Md Of Changes [facility] 12/26/24 In Process From Base 05:20 Advance Directive [facility] 12/26/24 In Process 05:20 Urinalysis LAB 12/26/24 Transmitted 05:20 Patient Condition ORDERS 12/26/24 Transmitted 05:20 Allergies [facility] 12/26/24 In Process 05:20 Hemoglobin A1c LAB 12/26/24 Transmitted 05:20 Notify Md Of Changes [facility] 12/26/24 In Process From Base 05:20 Lactated Ringers Lr [facility] 12/26/24 Transmitted 05:30 Vancomycin Per [facility] 12/26/24 Transmitted Pharmacy 05:30 Complete Blood Count LAB 12/26/24 Transmitted 05:20 Comprehensive LAB 12/26/24 Transmitted Metabolic Panel 05:20 Troponin-I Hs LAB 12/26/24 Logged 05:20 Troponin-I Hs LAB 12/26/24 Transmitted 05:20 Covid19 Antigen Bere LAB 12/26/24 Transmitted Rapid Influenza A&B LAB 12/26/24 Logged 05:20 Mrsa Screen [facility] 12/26/24 Transmitted 05:20 Lipid Panel LAB 12/26/24 Transmitted 05:20 Echo 2d Mode Cardiac US 12/26/24 Logged DOP 05:20 Date of Service: Dec 25, 2024 Billing Provider: FIORELLA GARCIA MD Common Visit Codes: [id number] INP/OBS CARE (HIGH) MARGO MONTESINOS RESIDENT Dec 26, 2024 05:40 FIORELLA GARCIA MD Dec 26, 2024 11:29
[2024-12-26 05:58] LABS: Basophils # (auto) 0 10 ^3/uL (0-0.2); Basophils % (auto) 0.2 % (0.0-2.0); Eosinophils # (auto) 0 10 ^3/uL (0-0.8); Eosinophils % (auto) 0.4 % (0.0-7.0); Hematocrit 38.5 % (41.0-53.0); Hemoglobin 13.3 g/dL (13.5-17.5); Lymphocytes # (auto) 0.6 10 ^3/uL (0.4-5.4); Lymphocytes % (auto) 4.7 % (10.0-50.0); Mean Corpuscular Hemoglobin 28.1 pg (28.0-32.0); Mean Corpuscular Hgb Conc. 34.5 g/dL (32.0-36.0); Mean Corpuscular Volume 81.3 fL (80.0-100.0); Monocytes # (auto) 0.5 10 ^3/uL (0-1.3); Monocytes % (auto) 3.5 % (0.0-12.0); Neutrophils # (auto) 12.5 10 ^3/uL (1.6-8.6); Neutrophils % (auto) 91.2 % (37.0-80.0); Platelet Count (auto) 169 10^3/uL (140-450); Red Blood Cells 4.74 10^6/uL (4.5-5.90); Red Cell Distribution Width 14.4 % (11.8-14.3); White Blood Cell 13.7 10^3/uL (4.4-10.8)
[2024-12-26] MEDS: PIPERACILLIN-TAZO 4.5GM 100 ML IV SCH (06:00)
[2024-12-26] MEDS: VANCOMYCIN 1GM/250mL NS or D5W KIT IV SCH (06:15)
[2024-12-26] MEDS ORDERED: ONDANSETRON HCL 4 MG/2 ML VIAL IV PRN ×2 (06:15)
[2024-12-26] MEDS: LACTATED RINGER'S 1,000 ML IV ONE ×2 (06:15→19:00)
[2024-12-26 06:18] LABS: Alanine Aminotransferase 14 U/L (7-40); Albumin 3.5 g/dL (3.2-4.8); Alkaline Phosphatase 90 U/L (46-116); Anion Gap 6 (5-15); Aspartate Aminotransferase 16 U/L (13-40); BUN/Creatinine Ratio 12.2 (10.0-20.0); Blood Urea Nitrogen 16 mg/dL (9-23); Carbon Dioxide 25 mmol/L (20-31); Potassium 4.1 mmol/L (3.5-5.1); Sodium 141 mmol/L (136-145)
[2024-12-26 06:19] LABS: Bilirubin, Total 0.8 mg/dL (0.2-1.0); Calcium 8.6 mg/dL (8.7-10.4); Chloride 110 mmol/L (98-107); Glucose 122 mg/dL (74-106); Total Protein 5.5 g/dL (5.7-8.2)
[2024-12-26 06:33] LABS: Triglycerides 94 mg/dL (< 150)
[2024-12-26 06:34] LABS: LDL Cholesterol 85 mg/dL (< 100)
[2024-12-26 06:35] LABS: Cholesterol 140 mg/dL (< 200); HDL Cholesterol 43 mg/dL (40-59)
[2024-12-26 07:59] LABS: COVID19 ANTIGEN SOFIA FIA NEGATIVE (NEGATIVE); Rapid Influenza A Negative (Negative); Rapid Influenza B Negative (Negative)
[2024-12-26] MEDS: PANTOPRAZOLE 40 MG/10 ML VIAL INJ IV SCH (09:17)
[2024-12-26 09:41] LABS: Urine Bacteria None Seen /hpf (None Seen)
[2024-12-26 10:07] LABS: Urine Blood Negative /uL (Negative); Urine Clarity Clear (Clear); Urine Color Yellow (Yellow); Urine Mucus FEW (None Seen); Urine Protein, UAD Negative (Negative); Urine Specific Gravity 1.023 (1.001-1.035); Urine Squamous Epithelial Cell None Seen /hpf (<5); Urine Urobilinogen Normal (Negative); Urine WBC 2 /HPF (0-3); Urine pH 5.5 (5.0-9.0)
--- NOTE | 2024-12-26 10:34 | DVH ---
PROCEDURE: MRI BRAIN HEAD WO CONTRAST INDICATION: ischemic changes. EXAM DATE: 12/26/2024 09:49 AM COMPARISON: None TECHNIQUE: MRI of the brain without intravenous contrast. FINDINGS: Diffusion weighted images of the brain demonstrate no evidence of acute infarction. There is no evidence of acute intracranial hemorrhage, extra-axial collection, mass effect, midline s hift, herniation or hydrocephalus. The ventricles, sulci and cisterns appear age appropriate. Moderate changes of chronic microvascular ischemic disease with old lacunar infarcts in the bilateral basal ganglia and [place]. There are no signal abnormalities on the susceptibility weighted sequences. The major vascular flow voids are present. Sinus mucosal thickening bilateral maxillary and ethmoid sinuses. The surrounding soft tissues and o sseous structures are unremarkable. IMPRESSION: 1. No evidence of acute infarction, intracranial hemorrhage, mass effect or hydrocephalus. Moderate c hanges of chronic microvascular ischemic disease with old lacunar infarcts in the bilateral basal radha glia and kodak. HS:Y
--- NOTE | 2024-12-26 11:41 | DVH ---
Bilateral lower extremity venous duplex Clinical History: Pain, dvt to rul out. Comparison: None Technique: Duplex Doppler evaluation of the deep venous systems of both lower extremities from the common femora l veins to the popliteal veins including color Doppler and spectral/pulsed waveform analysis was perf ormed. Findings: RIGHT SIDE: The common femoral vein demonstrates appropriate compressibility and waveform variability. There is compressibility/patency of the great saphenous vein at the proximal thigh. The femoral vein demonstrates appropriate compressibility and waveform variability. The deep femoral vein demonstrates appropriate compressibility and waveform variability. The popliteal vein, posterior tibial vein and trifurcation are not visualized due to patient's amputa tion. LEFT SIDE: The common femoral vein demonstrates appropriate compressibility and waveform variability. There is compressibility/patency of the great saphenous vein at the proximal thigh. The femoral vein demonstrates appropriate compressibility and waveform variability. The deep femoral vein demonstrates appropriate compressibility and waveform variability. The popliteal vein demonstrates appropriate compressibility and waveform variability. The left posterior tibial vein not visualized due to patient's amputation. Impression: No right or left femoropopliteal venous thrombosis.
[2024-12-26 12:35] LABS: Amphetamine Screen, Urine Pos (NEGATIVE); Barbiturate Scree,Urine Neg (NEGATIVE); Benzodiazephine Screen, Urine Neg (NEGATIVE); Cannabinoid Screen, Urine Pos (NEGATIVE); Cocaine Screen, Urine Neg (NEGATIVE); Opiate Scree,Urine Neg (NEGATIVE); Phencyclidine Screen, Urine Neg (NEGATIVE)
[2024-12-26 13:31] LABS: Hepatitis B Surface Antibody Negative (Negative)
[2024-12-26 13:44] LABS: Hepatitis C Antibody Negative (Negative)
[2024-12-26 14:02] LABS: Hematocrit 37.3 % (41.0-53.0); Hemoglobin 12.5 g/dL (13.5-17.5)
--- NOTE | 2024-12-26 15:22 | DVHPNRES ---
Progress Note Date Seen: Dec 26, 2024 Resident Creating Document: ADONIS SPEARS RESIDENT Has the PT tested + for MRSA If YES, has PT been informed?: No Medical Necessity Reason Pt with a Central, PICC or Fol: No Subjective Review of Systems 54-year-old male with past medical history of hypertension, cerebrovascular accident, ischemic colitis, frostbite in 2022 with bilateral lower extremities amputation who presents with shortness of breaths. He was found to have left- sided airspace disease on chest x-ray suspicious for pneumonia he was started on empiric antibiotics with vancomycin and Zosyn. Urine toxicology was positive for amphetamine cocaine alcohol marijuana nicotine. White blood cell count has improved from 18.1-13.7 suggesting partial resolution of leukocytosis and hemoglobin decreased from 16.3-13.3 likely due to hemodilution, we will monitor this closely. Troponin was elevated at 109 possibly in the setting of sepsis without clear evidence of myocardial infarction or any cardiac disease. Creatinine was mildly elevated at 1.23 likely due to sepsis related hypoperfusion. CT head revealed chronic ischemic changes with multiple infarcts in the bilateral basal ganglia, thalamus and white matter of the potassium and. MRI showed no acute infarct or mass effect but chronic microvascular ischemic disease with old lacunar infarcts in the basal ganglia and kodak. Cardiology was consulted however the patient refused a ESVIN and the consult was canceled. Neurology consult is pending. DVT ultrasound was negative for thrombosis ROS: Constitutional: Patient reports fatigue but no recent fevers or chills. No: Fever, Chills, Sweats, Weakness, Malaise, Other Eyes: No: Pain, Vision change, Conjunctivae inflammation, Eyelid inflammation, Other, Redness ENT: No: Ear pain, Ear discharge, Nose pain, Nose discharge, Nose congestion, Mouth pain, Mouth swelling, Throat pain, Throat swelling, Other Respiratory: Positive for shortness of breaths no hemoptysis positive for wheezing. Cardiovascular: No: Chest Pain, Palpitations, Orthopnea, Paroxysmal Noc. Dyspnea, Edema, Lt Headedness, Other Gastrointestinal: No: Nausea, Vomiting, Abdominal Pain, Diarrhea, Constipation, Melena, Hematochezia, Other Musculoskeletal: No: other, neck pain, shoulder pain, arm pain, back pain, hand pain, leg pain, foot pain Neurological:; No: Weakness, Numbness, Incoordination, Change in speech, Confusion, Seizures Objective vital signs Vital Sign Date Time Temp Pulse Resp B/P (MAP) Pulse Ox O2 Delivery O2 Flow Rate FiO2 12/26/24 13:30 99.0 118 20 128/77 (94) 94 99.0 12/26/24 10:33 Room Air* 0 21 Total Intake and Output 12/25/24 12/25/24 12/26/24 15:00 23:00 07:00 Intake Total 100 ml 600 ml Balance 100 ml 600 ml medications Current Medications Medications Dose Ordered Sig/Connie Route Start Time Stop Time Status Last Admin Dose Admin Piperacillin Sod/ Tazobactam Sod 100 ml @ 25 mls/hr Q8HR IV 12/26/24 06:00 Vancomycin HCl 0 ml @ 0 mls/hr UD IV 12/26/24 05:30 Ondansetron HCl 4 mg Q4HPRN PRN IV 12/26/24 06:15 UNV Ondansetron HCl 4 mg Q6HPRN PRN IV 12/26/24 06:15 Pantoprazole Sodium 40 mg BID IV 12/26/24 10:00 12/26/24 09:17 40 MG Examination Examination General Appearance: Alert, Oriented X1, Cooperative Respiratory: Decreased breath sounds on the left with crackles Cardiovascular: Regular rate, Normal S1, Normal S2 Abdominal: Normal bowel sounds Extremities: No cyanosis, No edema, Normal pulses, No tenderness/swelling , history of bilateral lower extremity amputation Skin: No rashes, No breakdown Neuro:Normal speech, Strength at 5/5 X4 ext, Normal tone, Sensation intact, Cranial nerves 3-12 NL, Reflexes 2+ Psych/Mental Status: Mental status NL, Mood NL laboratory and microbiology Laboratory Tests 12/26/24 13:48 12/26/24 05:45 Test 12/26/24 05:45 Range/Units Serum Glucose 122 H 74-106 mg/dL Problem List/Assessment/Plan Problem List/Assessment/Plan # acute encephalopathy likely multifactorial due to chronic microvascular ischemic disease with old lacunar infarcts in the bilateral basal ganglia and kodak in the setting off Sepsis due to Gram-positive Gram-negative community- acquired pneumonia -admit to med surge - Continue IV antibiotics vancomycin and Zosyn. -Johnson catheter in place for accurate urine output -neurology consultation pending #NSTEMI type 2 likely due to sepsis, ischemic/demand -monitor -cardiology consultation was canceled patient refused ESVIN. #OLIVER due to VMN #Likely prerenal from sepsis -Continue IV fluids -Monitor creatinine and electrolytes. #Polysubstance abuse #Amphetamine abuse #Cocaine abuse #Alcohol abuse #Marijuana abuse #Nicotine dependency -Supportive care -Drug use cessation counseling #History of cerebrovascular accident #History of bilateral lower extremity amputation due to frostbite on 2022 #History of ischemic colitis #PPI prophylaxis -Pantoprazole 40 mg daily #DVT prophylaxis -Enoxaparin 40 subcutaneous Case discussed with Dr. Delaney Goals of care discussed with the patient for 31 minutes Code status: Full code Plan discussed with: Patient My Orders My Orders Orders - ADONIS SPEARS Procedure Category Date Status Time Respiratory Culture USAMA 12/26/24 Uncollected W/ Gs 08:22 Insert Johnson Catheter DEMARCUS 12/26/24 In Process 09:31 ADONIS SPEARS RESIDENT Dec 26, 2024 15:22
--- NOTE | 2024-12-26 21:31 | DVHINCON2 ---
Date of service: Dec 26, [address] Moran Reason for Consultation CT acute changes History of Present Illness Mr. Garner is a 54 years old gentleman with a history of hypertension, dyslipidemia, multiple strokes, status post bilateral BKA, the patient was came to the hospital on 12/25/2024 with a chief company of shortness breath. On scene, the EMS personnel noted the patient was lethargic, and with pulse ox in the mid 80s and the patient was treated accordingly. Earlier this morning, the patient was confused, not cooperative. In the evening, when I saw him, he was awake, oriented to person, place, he knows year and the month, cooperative, but is a poor historian. He does not remember much about the problem he had before he came to the hospital. He relates having seven strokes over the last two years, or caused right-sided weakness, he does not remember being in a hospital, or taking a spirin or any blood thinner, or any medication at home, the ER note mentioned aspirin 81 mg daily, atorvastatin 20 mg daily at home He was residual right-sided weakness, but he still able to use the right arm, he walks with prosthetics along with his walker The case was discussed with cook frozen dessert this morning, the patient was not cooperative with them. I have discussed with them the patient multiple chronic strokes, which were evident in previous CT brain scans I was permanent to call his sister at [phone], but the number was restricted or not in service UDS, 12/26/2024: Fentanyl, amphetamine, cannabinoids Urinalysis, 12/26/2024: WBC: 2, urine leukocyte esterase: Negative WBC/HB/PLT/MCV, 12/26/2024: 13.7/13.3/169/81.3 BUN/CR, 12/26/2024: 16/1.31 Liver function tests, 12/26/2024: Unremarkable TG/HDL/LDL/HDL, 12/26/2024: 94/140/85/43 Vitamin B12, 12/26/2024: 425 TSH, 12/26/2024: 0.46 Extremity venous study, 12/26/2024: No right or left femoropopliteal venous thrombosis CT head, 12/25/2024: Evidence for extensive ischemic disease as indicated by multiple infarcts in the basal ganglia bilateral thalamus and in the white matter of the putamen. Follow-up MRI examination is suggested No acute infarc ts appreciated this time MRI head, 12/26/2024: No evidence of acute infarction, intracranial hemorrhage, mass effect or hydrocephalus. Moderate changes of chronic microvascular ischemic disease with old lacunar infarcts in the bilateral basal ganglia and kodak Past Medical History Hypertension, dyslipidemia, stroke Past Surgical History Bilateral BKA Family History: Hypertension G8 SISTER Family History Hypertension Social History Smoker: Non-Smoker Alcohol: Denies ETOH Use Drugs: Denies Drug Use (UDS on 12/26/2024) Lives In: Home Allergies: Coded Allergies: NO KNOWN ALLERGIES (Unverified , 07/10/18) Home Meds Active Scripts Cephalexin Monohydrate (Cephalexin) 500 Mg Cap, 1 CAP PO TID, #30 CAP Prov:GRANT HANSON MD 09/29/22 Hydrocodone-Acetaminophen (Hydrocodone Bitartrate/AC 5-325 mg) 1 Tab Tab, 1 TAB PO Q6HP PRN for 5 Days, #20 TAB Prov:GRANT HANSON MD 09/11/22 Lisinopril (Lisinopril) 20 Mg Tab, 1 TAB PO DAILY, #60 TAB 0 Refills Prov:ATA CROCKETT MD 07/12/18 Metoprolol Tartrate (Lopressor) 25 Mg Tb, 25 MG PO BID, #120 Prov:ATA CROCKETT MD 07/12/18 Atorvastatin Calcium (ATORVASTATIN CALCIUM) 20 Mg Tab, 20 MG PO HS, #60 TAB Prov:ATA CROCKETT MD 07/12/18 Pantoprazole Sodium Sesquihydr (Protonix) 40 Mg Tab, 40 MG PO DAILY, #60 TAB Prov:ATA CROCKETT MD 07/11/18 Aspirin (Asa) 81 Mg Ch, 81 MG PO DAILY, #60 Prov:ATA CROCKETT MD 07/11/18 Current Medications Current Medications Medications (Trade) Dose Ordered Sig/Connie Route PRN Reason Start Time Stop Time Status Last Admin Piperacillin Sod/ Tazobactam Sod 100 ml @ 25 mls/hr Q8HR IV 12/26/24 06:00 12/26/24 15:27 Vancomycin HCl 0 ml @ 0 mls/hr UD IV 12/26/24 05:30 Vancomycin HCl 250 ml @ 250 mls/hr Q1H IV 12/26/24 05:45 12/26/24 07:44 DC 12/26/24 08:37 Ondansetron HCl (Zofran) 4 mg Q4HPRN PRN IV NAUSEA / VOMITING 12/26/24 06:15 UNV Ondansetron HCl (Zofran) 4 mg Q6HPRN PRN IV NAUSEA / VOMITING 12/26/24 06:15 Pantoprazole Sodium (Protonix) 40 mg BID IV 12/26/24 10:00 12/26/24 09:17 Review of Systems Unobtainable Vital Signs Vital Signs Date Time Temp Pulse Resp B/P (MAP) Pulse Ox O2 Delivery O2 Flow Rate FiO2 12/26/24 16:30 99.1 115 18 136/84 (101) 97 99.1 12/26/24 10:33 Room Air* 0 21 Physical Exam GENERAL EXAM: General: the patient is well developed and nourished. No acute distress. HEENT: Normocephalic, neck is supple, no carotid bruits. No mass. RESPIRATORY: Normal respiratory effort with symmetrical lung expansion. Lungs clear to auscultation. CARDIOVASCULAR: Regular rate and rhythm with no murmurs. S1, S2. ABDOMEN: Soft, nontender, normal bowel sound MUSCULOSKELETAL EXAM: Status post bilateral BKA NEUROLOGICAL: MENTAL STATUS: Awake and alert. Oriented to person, place, he knows year and the month, poor historian SPEECH, LANGUAGE, HIGHER CORTICAL FUNCTION: no aphasia or dysathria. CRANIAL NERVES: #2: Intact visual roque to confrontation. #3,4,6: Pupils are equal, round and reactive. EOMs full and conjugate. No nystagmus. #5: Facial sensation intact in all three divisions bilaterally. Mandibular strength intact. #7: Facial muscles symmetrical and strength intact. #8: Hearing grossly normal to voice. #9,10: Uvula and soft palate rise in the midline. Swallow and voice are normal. #11: Trapezius and sternomastoid strength intact bilaterally. #12: Tongue midline. No fasciculations or atrophy. SENSATION: Sensation to touch and pinprick is normal. MOTOR: Normal tone in the upper and lower extremity. Normal muscle bulk. No fasciculations. No abnormal movements or posturing. Muscle strength of the major groups in the upper extremities is: Rt: 4/5, Lr: 4-5/5. Muscle strength of the major groups in the lower extremities is 3-4/5. REFLEXES: Deep tendon reflexes normal and symmetrical. No pathological reflexes. CEREBELLAR/COORDINATION: Finger to nose is unremarkable bilaterally. GAIT/STATION: deferred. Labs/Diagnostic Data Labs Test 12/26/24 13:48 12/26/24 09:00 12/26/24 07:00 12/26/24 05:45 Range/Units Hemoglobin 12.5 L 13.5-17.5 g/dL Hematocrit 37.3 L 41.0-53.0 % Urine Color Yellow Yellow Urine Clarity Clear Clear Urine pH 5.5 5.0-9.0 Urine Specific Harris 1.023 1.001-1.035 Urine Protein Negative Negative Urine Ketones Negative Negative Urine Blood Negative Negative /uL Urine Nitrite Negative Negative Urine Bilirubin Negative Negative Urine Urobilinogen Normal Negative mg/dL Urine Leukocyte Esterase Negative Negative /uL Urine RBC 1 0 - 3 /hpf Urine Microscopic WBC 2 0-3 /HPF Urine Squamous Epithelial Cells None seen <5 /hpf Urine Bacteria None seen None Seen /hpf Urine Mucus Few None Seen Urine Glucose Normal Normal mg/dL Urine Opiates Screen Neg NEGATIVE Urine Fentanyl Screen Pos NEGATIVE Urine Barbiturates Screen Neg NEGATIVE Urine Phencyclidine Screen Neg NEGATIVE Urine Amphetamines Screen Pos NEGATIVE Urine Benzodiazepines Screen Neg NEGATIVE Urine Cocaine Screen Neg NEGATIVE Urine Cannabinoids Screen Pos NEGATIVE Influenza Type A Antigen Negative Negative Influenza Type B Antigen Negative Negative SARS-CoV-2 Antigen (Rapid) Negative NEGATIVE White Blood Count 13.7 H 4.4-10.8 10^3/uL Red Blood Count 4.74 4.5-5.90 10^6/uL Mean Corpuscular Volume 81.3 # 80.0-100.0 fL Mean Corpuscular Hemoglobin 28.1 28.0-32.0 pg Mean Corpuscular Hemoglobin Concent 34.5 32.0-36.0 g/dL Red Cell Distribution Width 14.4 H 11.8-14.3 % Platelet Count 169 140-450 10^3/uL Mean Platelet Volume 7.9 6.9-10.8 fL Neutrophils (%) (Auto) 91.2 H 37.0-80.0 % Lymphocytes (%) (Auto) 4.7 L 10.0-50.0 % Monocytes (%) (Auto) 3.5 0.0-12.0 % Eosinophils (%) (Auto) 0.4 0.0-7.0 % Basophils (%) (Auto) 0.2 0.0-2.0 % Neutrophils # (Auto) 12.5 H 1.6-8.6 10 ^3/uL Lymphocytes # (Auto) 0.6 0.4-5.4 10 ^3/uL Monocytes # (Auto) 0.5 0-1.3 10 ^3/uL Eosinophils # (Auto) 0 0-0.8 10 ^3/uL Basophils # (Auto) 0 0-0.2 10 ^3/uL Nucleated Red Blood Cells 0.0 % D-Dimer, Quantitative 1.23 H 0.0-0.49 mg/L FEU Sodium Level 141 136-145 mmol/L Potassium Level 4.1 3.5-5.1 mmol/L Chloride Level 110 H 98-107 mmol/L Carbon Dioxide Level 25 20-31 mmol/L Anion Gap 6 5-15 Blood Urea Nitrogen 16 9-23 mg/dL Creatinine 1.31 H 0.700-1.30 mg/dL Glomerular Filtration Rate Calc 65 >90 mL/min BUN/Creatinine Ratio 12.2 10.0-20.0 Serum Glucose 122 H 74-106 mg/dL Hemoglobin A1c 5.3 <5.7 % A1C Calcium Level 8.6 L 8.7-10.4 mg/dL Total Bilirubin 0.8 0.2-1.0 mg/dL Aspartate Amino Transferase (AST) 16 13-40 U/L Alanine Aminotransferase (ALT) 14 7-40 U/L Alkaline Phosphatase 90 46-116 U/L Troponin I High Sensitivity 109 *H </=54 ng/L Total Protein 5.5 L 5.7-8.2 g/dL Albumin 3.5 3.2-4.8 g/dL Triglycerides Level 94 < 150 mg/dL Cholesterol Level 140 < 200 mg/dL LDL Cholesterol 85 < 100 mg/dL HDL Cholesterol 43 40-59 mg/dL Vitamin B12 Level 425 211-911 pg/mL Thyroid Stimulating Hormone (TSH) 0.46 L 0.55-4.78 uIU/mL Plasma/Serum Blood Alcohol < 3.0 <10 mg/dL Test 12/26/24 01:43 12/25/24 18:59 Range/Units Lactic Acid Level 0.9 0.4-2.0 mmol/L Hepatitis B Surface Antibody Negative Negative Hepatitis C Antibody Negative Negative Ammonia < 10 L 11-32 umol/L Microbiology Date/Time Source Procedure Growth Status 12/25/24 20:08 Blood Blood Culture - Preliminary NO GROWTH AFTER 24 HOURS OF INCUBATION. Resulted Assessment Multiple strokes Residual right-sided weakness Altered mental status Metabolic encephalopathy Hypoxic encephalopathy Toxic encephalopathy Status post bilateral BKA Substance abuse Plan/Recommendation Monitoring Supportive treatment Telemetry Carotid Doppler Aspirin 81 mg daily Lipitor 20 mg daily IV antibiotics GI prophylaxis Cardiology evaluation Re: ESVIN More recommendation per clinical course Prognosis: Poor This medical document was created using an electronic medical record system with [employer] dictation system. Although this document has been carefully reviewed, there may still be some phonetic and typographical errors. These areas are purely typographical due to imperfections of the software programs, and do not reflect any compromise in the patient's medical care. Plan discussed with: Other RIANNA HAN MD Dec 26, 2024 21:31
[2024-12-27] VITALS (8 sets, daily range): BP systolic 126–144; BP diastolic 70–94; PULSE 70–104; RESP 16–20; TEMP 97.4–98.4; O2SAT 92–98
--- NOTE | 2024-12-27 07:15 | ECG ---
[facility] Test Date: 2024-12-26 Test Time: 03:11:14 Pat Name: TAINA QUILES Department: ER Room: 0219T Gender: M Product L[employer]: : [id number] Requested By: TRISH VILLAFUERTE Order Number: [id number] Reading MD: Cj Connelly Measurements Intervals [place] Rate: 126 P: 82 IN: 121 QRS: 59 QRSD: 131 T: 243 QT: 346 QTc: 502 Interpretive Statements Sinus tachycardia IVCD, consider atypical LBBB Baseline wander in lead(s) V2 Electronically Signed On 12-28-2024 22:05:18 PDT by Cj Connelly Please click the below link to view image of tracing.
[2024-12-27 07:17] LABS: Basophils # (auto) 0.1 10 ^3/uL (0-0.2); Basophils % (auto) 0.8 % (0.0-2.0); Eosinophils # (auto) 0.1 10 ^3/uL (0-0.8); Eosinophils % (auto) 1.3 % (0.0-7.0); Hematocrit 37.8 % (41.0-53.0); Hemoglobin 12.6 g/dL (13.5-17.5); Lymphocytes # (auto) 0.8 10 ^3/uL (0.4-5.4); Lymphocytes % (auto) 8.3 % (10.0-50.0); Mean Corpuscular Hemoglobin 27.4 pg (28.0-32.0); Mean Corpuscular Hgb Conc. 33.4 g/dL (32.0-36.0); Monocytes # (auto) 0.7 10 ^3/uL (0-1.3); Monocytes % (auto) 6.6 % (0.0-12.0); Neutrophils # (auto) 8.3 10 ^3/uL (1.6-8.6); Nucleated Red Blood Cells % 0.1 %; Platelet Count (auto) 160 10^3/uL (140-450); Red Blood Cells 4.61 10^6/uL (4.5-5.90); Red Cell Distribution Width 14.4 % (11.8-14.3)
[2024-12-27 08:31] LABS: Calcium 8.9 mg/dL (8.7-10.4); Carbon Dioxide 23 mmol/L (20-31); Potassium 3.8 mmol/L (3.5-5.1); Sodium 136 mmol/L (136-145)
[2024-12-27 08:37] LABS: BUN/Creatinine Ratio 9.2 (10.0-20.0); Blood Urea Nitrogen 12 mg/dL (9-23); Glucose 91 mg/dL (74-106)
[2024-12-27 09:18] LABS: Anion Gap 6 (5-15)
[2024-12-27 09:25] LABS: Chloride 107 mmol/L (98-107)
[2024-12-27] MEDS: ENOXAPARIN SOD 40 MG/0.4 ML SYRINGE SC SCH (10:23)
[2024-12-27] MEDS: ASPirin-EC 81 mg tab PO SCH (10:23)
[2024-12-27] MEDS: CLOPIDOGREL BISULFATE 75 MG TAB PO SCH (10:23)
--- NOTE | 2024-12-27 10:59 | DVH ---
Carotid Duplex Date: 12/27/2024 08:19 AM Clinical History: Stroke Comparison: None Technique: Duplex Doppler evaluation of the extracranial carotid and vertebral arteries including color Doppler and spectral/pulsed waveform analysis was performed. Findings: Velocities and ratios within normal limits. IMPRESSION: No hemodynamically significant stenosis noted in the right carotid system. No hemodynamically significant stenosis noted in the left carotid system. Reference: Radiology 2003; 229:340-346
[2024-12-27] MEDS: VANCOMYCIN 1GM/250ML KIT 250 ML IV SCH (14:00)
--- NOTE | 2024-12-27 14:19 | DVHINCON2 ---
Date Seen: Dec 27, 2024 Referring Physician MD Rhett Reason for Consultation ESVIN History of Present Illness This is a 54-year-old man who presented to the emergency room via EMS with a chief complaint of shortness of breath. The patient is somewhat a poor historian. Information obtained from records which indicate the patient's landlord found him short of breath prompting him to call 911. Upon EMS arrival the patient was found with an oxygen saturation level in the mid 80s% and lethargic. Cardiology consulted given abnormal findings on head CT/brain MRI with Neurological team requesting a transesophageal echocardiogram. There was no 12 lead electrocardiogram on file. Troponin levels peaked at 137 ng/L. Significant medical history includes hypertension, dyslipidemia, history of CVAs, ischemic colitis, GERD, and frostbite with bilateral BKA. Past Medical History Past medical history reviewed. No other significant than mentioned above. Past Surgical History Bilateral BKA secondary to frostbite in 2022 Family History: Hypertension G8 SISTER Family History Unknown family history. Social History Per records, positive for tobacco/cannabinoid/methamphetamine/alcohol use. Allergies: Coded Allergies: NO KNOWN ALLERGIES (Unverified , 07/10/18) Home Meds Active Scripts Cephalexin Monohydrate (Cephalexin) 500 Mg Cap, 1 CAP PO TID, #30 CAP Prov:GRANT HANSON MD 09/29/22 Hydrocodone-Acetaminophen (Hydrocodone Bitartrate/AC 5-325 mg) 1 Tab Tab, 1 TAB PO Q6HP PRN for 5 Days, #20 TAB Prov:GRANT HANSON MD 09/11/22 Lisinopril (Lisinopril) 20 Mg Tab, 1 TAB PO DAILY, #60 TAB 0 Refills Prov:ATA CROCKETT MD 07/12/18 Metoprolol Tartrate (Lopressor) 25 Mg Tb, 25 MG PO BID, #120 Prov:ATA CROCKETT MD 07/12/18 Atorvastatin Calcium (ATORVASTATIN CALCIUM) 20 Mg Tab, 20 MG PO HS, #60 TAB Prov:ATA CROCKETT MD 07/12/18 Pantoprazole Sodium Sesquihydr (Protonix) 40 Mg Tab, 40 MG PO DAILY, #60 TAB Prov:ATA CROCKETT MD 07/11/18 Aspirin (Asa) 81 Mg Ch, 81 MG PO DAILY, #60 Prov:ATA CROCKETT MD 07/11/18 Home Meds Home medications reviewed. Current Medications Current Medications Medications (Trade) Dose Ordered Sig/Connie Route PRN Reason Start Time Stop Time Status Last Admin Aspirin (Ecotrin Enteric Coated Tablet) 81 mg DAILY PO 12/27/24 10:00 12/27/24 10:23 Clopidogrel Bisulfate (Plavix) 75 mg DAILY PO 12/27/24 10:00 12/27/24 10:23 Enoxaparin Sodium (Lovenox) 40 mg DAILY SC 12/27/24 10:00 12/27/24 10:23 Vancomycin HCl 250 ml @ 250 mls/hr Q18H IV 12/27/24 11:00 12/27/24 14:00 Review of Systems Constitutional: Generalized weakness Ears, Nose, & Throat: No symptom reported Eyes: No symptom reported Neurological: No symptoms reported Pulmonary/Respiratory: SOB Cardiovascular: No symptom reported Gastrointestinal: No symptom reported Genitourinary: No symptom reported Musculoskeletal: No symptom reported Skin: No symptom reported Psychiatric: No symptom reported Endocrine: No symptom reported Hemotologic/Lymphatic: No symptom reported Vital Signs Vital Signs Date Time Temp Pulse Resp B/P (MAP) Pulse Ox O2 Delivery O2 Flow Rate FiO2 12/27/24 09:00 97.9 99 20 130/82 (98) 92 97.9 12/27/24 08:04 Room Air* 0 21 Physical Exam General Appearance: Somnolent. Disheveled. Unkept. In no acute distress Head Exam: Normal inspection Neck Exam: Normal inspection. Non-tender. Normal alignment Pulmonary/Respiratory: Chest non-tender. Clear bilateral breath sounds Cardiovascular/Chest: Regular rate and rhythm. S1, S2. Sinus rhythm. No murmurs. No JVD. Peripheral Pulses: 2+ Radial (R). 2+ Radial (L). Abdominal Exam: Normal bowel sounds. Soft. Nontender. No hepatospenomegaly. No masses Ankle Exam: Negative ankle edema Lower extremities: Negative lower extremity edema Neuro/Mental Status: A&O x3. Coherent but very poor historian Thoughts/Psych: Normal thought pattern. Passive, flat affect, somnolent Appearance: In no acute distress Skin Exam: Normal inspection. Normal color. Warm. Dry Labs/Diagnostic Data Labs Test 12/27/24 05:45 12/26/24 09:00 12/26/24 07:00 12/26/24 05:45 Range/Units White Blood Count 10.0 # 4.4-10.8 10^3/uL Red Blood Count 4.61 4.5-5.90 10^6/uL Hemoglobin 12.6 L 13.5-17.5 g/dL Hematocrit 37.8 L 41.0-53.0 % Mean Corpuscular Volume 82.0 80.0-100.0 fL Mean Corpuscular Hemoglobin 27.4 L 28.0-32.0 pg Mean Corpuscular Hemoglobin Concent 33.4 32.0-36.0 g/dL Red Cell Distribution Width 14.4 H 11.8-14.3 % Platelet Count 160 140-450 10^3/uL Mean Platelet Volume 8.5 6.9-10.8 fL Neutrophils (%) (Auto) 83.0 H 37.0-80.0 % Lymphocytes (%) (Auto) 8.3 L 10.0-50.0 % Monocytes (%) (Auto) 6.6 0.0-12.0 % Eosinophils (%) (Auto) 1.3 0.0-7.0 % Basophils (%) (Auto) 0.8 0.0-2.0 % Neutrophils # (Auto) 8.3 1.6-8.6 10 ^3/uL Lymphocytes # (Auto) 0.8 0.4-5.4 10 ^3/uL Monocytes # (Auto) 0.7 0-1.3 10 ^3/uL Eosinophils # (Auto) 0.1 0-0.8 10 ^3/uL Basophils # (Auto) 0.1 0-0.2 10 ^3/uL Nucleated Red Blood Cells 0.1 % Sodium Level 136 # 136-145 mmol/L Potassium Level 3.8 3.5-5.1 mmol/L Chloride Level 107 98-107 mmol/L Carbon Dioxide Level 23 20-31 mmol/L Anion Gap 6 5-15 Blood Urea Nitrogen 12 9-23 mg/dL Creatinine 1.30 0.700-1.30 mg/dL Glomerular Filtration Rate Calc 66 >90 mL/min BUN/Creatinine Ratio 9.2 L 10.0-20.0 Serum Glucose 91 74-106 mg/dL Calcium Level 8.9 8.7-10.4 mg/dL Random Vancomycin Level 6.4 5-10 ug/mL Urine Color Yellow Yellow Urine Clarity Clear Clear Urine pH 5.5 5.0-9.0 Urine Specific Cantil 1.023 1.001-1.035 Urine Protein Negative Negative Urine Ketones Negative Negative Urine Blood Negative Negative /uL Urine Nitrite Negative Negative Urine Bilirubin Negative Negative Urine Urobilinogen Normal Negative mg/dL Urine Leukocyte Esterase Negative Negative /uL Urine RBC 1 0 - 3 /hpf Urine Microscopic WBC 2 0-3 /HPF Urine Squamous Epithelial Cells None seen <5 /hpf Urine Bacteria None seen None Seen /hpf Urine Mucus Few None Seen Urine Glucose Normal Normal mg/dL Urine Opiates Screen Neg NEGATIVE Urine Fentanyl Screen Pos NEGATIVE Urine Barbiturates Screen Neg NEGATIVE Urine Phencyclidine Screen Neg NEGATIVE Urine Amphetamines Screen Pos NEGATIVE Urine Benzodiazepines Screen Neg NEGATIVE Urine Cocaine Screen Neg NEGATIVE Urine Cannabinoids Screen Pos NEGATIVE Influenza Type A Antigen Negative Negative Influenza Type B Antigen Negative Negative SARS-CoV-2 Antigen (Rapid) Negative NEGATIVE D-Dimer, Quantitative 1.23 H 0.0-0.49 mg/L FEU Hemoglobin A1c 5.3 <5.7 % A1C Total Bilirubin 0.8 0.2-1.0 mg/dL Aspartate Amino Transferase (AST) 16 13-40 U/L Alanine Aminotransferase (ALT) 14 7-40 U/L Alkaline Phosphatase 90 46-116 U/L Troponin I High Sensitivity 109 *H </=54 ng/L Total Protein 5.5 L 5.7-8.2 g/dL Albumin 3.5 3.2-4.8 g/dL Triglycerides Level 94 < 150 mg/dL Cholesterol Level 140 < 200 mg/dL LDL Cholesterol 85 < 100 mg/dL HDL Cholesterol 43 40-59 mg/dL Vitamin B12 Level 425 211-911 pg/mL Thyroid Stimulating Hormone (TSH) 0.46 L 0.55-4.78 uIU/mL Plasma/Serum Blood Alcohol < 3.0 <10 mg/dL Test 12/26/24 01:43 12/25/24 18:59 Range/Units Lactic Acid Level 0.9 0.4-2.0 mmol/L Hepatitis B Surface Antibody Negative Negative Hepatitis C Antibody Negative Negative Ammonia < 10 L 11-32 umol/L Microbiology Date/Time Source Procedure Growth Status 12/26/24 09:00 Urine - Midstream Clean Catch Urine Culture - Preliminary Resulted 12/25/24 20:08 Blood Blood Culture - Preliminary NO GROWTH AFTER 24 HOURS OF INCUBATION. Resulted Assessment Chronic multiple strokes rule out cardioembolic source Hypertension Dyslipidemia Bilateral BKA Polysubstance abuse Nicotine dependence Plan/Recommendation (Dr. Connelly) Scheduled for a transesophageal echocardiogram with Dr. Connelly on 12/28/2024. All risks and benefits of the procedure were discussed with the patient who agrees to proceed with intervention. All questions answered. In the meantime, continue neurological recommendations including antiplatelet therapy. The patient can benefit from an outpatient event monitor to rule out tachyarrhythmias. In the setting of an unremarkable ESVIN, there is no further cardiac workup indicated at this time. Thank you for allowing us to participate in this patient's care. Please call if you have any questions or concerns. This medical document was created using an electronic medical record system with voice recognition software and computerized dictation system. Although this document has been carefully reviewed, there might still be some phonetic and typographical errors. Occasional wrong-word or ``sound-alike substitutions may have occurred due to the inherent limitations of voice recognition software. These areas are purely typographical due to imperfections of the software programs and do not reflect any compromise in the patient's medical care. Please read the chart carefully and recognize, using context, where these substitutions have occurred. Plan discussed with: Patient, Other NYHA Physical activity limitations: NA Date of Service: Dec 27, 2024 Billing Provider: BRADEN LEVI Cardiology Common Codes: [id number] INP/OBS CARE (High) BRADEN LEVI Dec 27, 2024 14:19
--- NOTE | 2024-12-27 14:57 | DVHPN2 ---
Progress Note - Dictate Date Seen: Dec 27, 2024 Has the PT tested + for MRSA If YES, has PT been informed?: No Medical Necessity Reason Pt with a Central, PICC or Fol: No Subjective Mr. Garner is a 54 years old gentleman with a history of hypertension, dyslipidemia, multiple strokes, status post bilateral BKA, the patient was came to the hospital on 12/25/2024 with a chief company of shortness breath. On scene, the EMS personnel noted the patient was lethargic, and with pulse ox in the mid 80s and the patient was treated accordingly. I have seen and examined the patient, I have talked to his nurse, and Cardiology team, he was doing fine, awake, oriented to person, place, he knows year and the month. Again he reports seven strokes previously UDS, 12/26/2024: Fentanyl, amphetamine, cannabinoids Urinalysis, 12/26/2024: WBC: 2, urine leukocyte esterase: Negative WBC/HB/PLT/MCV, 12/26/2024: 13.7/13.3/169/81.3 BUN/CR, 12/26/2024: 16/1.31 Liver function tests, 12/26/2024: Unremarkable TG/HDL/LDL/HDL, 12/26/2024: 94/140/85/43 Vitamin B12, 12/26/2024: 425 TSH, 12/26/2024: 0.46 Extremity venous study, 12/26/2024: No right or left femoropopliteal venous thrombosis Carotid Doppler, 12/27/2024: No hemodynamically significant stenosis noted in the right carotid system. No hemodynamically significant stenosis noted in the left carotid system. CT head, 12/25/2024: Evidence for extensive ischemic disease as indicated by multiple infarcts in the basal ganglia bilateral thalamus and in the white matter of the putamen. Follow-up MRI examination is suggested No acute infarcts appreciated this time MRI head, 12/26/2024: No evidence of acute infarction, intracranial hemorrhage, mass effect or hydrocephalus. Moderate changes of chronic microvascular ischemic disease with old lacunar infarcts in the bilateral basal ganglia and kodak vital signs Vital Sign Date Time Temp Pulse Resp B/P (MAP) Pulse Ox O2 Delivery O2 Flow Rate FiO2 12/27/24 13:00 97.4 104 16 133/88 (103) 98 97.4 12/27/24 08:04 Room Air* 0 21 Total Intake and Output 12/26/24 12/26/24 12/27/24 15:00 23:00 07:00 Intake Total 250 ml 460 ml 600 ml Output Total 500 ml Balance 250 ml 460 ml 100 ml medications Current Medications Medications Dose Ordered Sig/Connie Route Start Time Stop Time Status Last Admin Dose Admin Piperacillin Sod/ Tazobactam Sod 100 ml @ 25 mls/hr Q8HR IV 12/26/24 06:00 12/27/24 05:18 25 MLS/HR Vancomycin HCl 0 ml @ 0 mls/hr UD IV 12/26/24 05:30 Ondansetron HCl 4 mg Q4HPRN PRN IV 12/26/24 06:15 UNV Ondansetron HCl 4 mg Q6HPRN PRN IV 12/26/24 06:15 Pantoprazole Sodium 40 mg BID IV 12/26/24 10:00 12/26/24 21:52 40 MG Aspirin 81 mg DAILY PO 12/27/24 10:00 12/27/24 10:23 81 MG Clopidogrel Bisulfate 75 mg DAILY PO 12/27/24 10:00 12/27/24 10:23 75 MG Enoxaparin Sodium 40 mg DAILY SC 12/27/24 10:00 12/27/24 10:23 40 MG Vancomycin HCl 250 ml @ 250 mls/hr Q18H IV 12/27/24 11:00 12/27/24 14:00 250 MLS/HR objective General: the patient is well developed and nourished. No acute distress. MUSCULOSKELETAL EXAM: Status post bilateral BKA MENTAL STATUS: Awake and alert. Oriented to person, place, he knows year and the month, poor historian SPEECH, LANGUAGE, HIGHER CORTICAL FUNCTION: no aphasia or dysathria. CRANIAL NERVES: Pupils are equal, round and reactive. EOMs full and conjugate. No nystagmus. Facial sensation intact in all three divisions bilaterally. Mandibular strength intact. Facial muscles symmetrical and strength intact. SENSATION: Sensation to touch and pinprick is normal. MOTOR: Normal tone in the upper and lower extremity. Normal muscle bulk. No fasciculations. No abnormal movements or posturing. Muscle strength of the major groups in the upper extremities is: Rt: 4/5, Lt: 4-5/5. Muscle strength of the major groups in the lower extremities is 3-4/5. REFLEXES: Deep tendon reflexes normal and symmetrical. No pathological reflexes. CEREBELLAR/COORDINATION: Finger to nose is unremarkable bilaterally. GAIT/STATION: deferred. laboratory and microbiology Laboratory Tests 12/27/24 05:45 Test 12/27/24 05:45 Range/Units Serum Glucose 91 74-106 mg/dL Problem List Multiple strokes Residual right-sided weakness Altered mental status Metabolic encephalopathy Hypoxic encephalopathy Toxic encephalopathy Status post bilateral BKA Substance abuse Assessment/Plan Monitoring Supportive treatment Telemetry Aspirin 81 mg daily Lipitor 20 mg daily IV antibiotics GI prophylaxis Cardiology Re: ESVIN More recommendation per clinical course This medical document was created using an electronic medical record system with [employer] computerized dictation system. Although this document has been carefully reviewed, there may still be some phonetic and typographical errors. These areas are purely typographical due to imperfections of the software programs, and do not reflect any compromise in the patient's medical care Prognosis poor Plan discussed with: Other Total Time (mins): 35 RIANNA HAN MD Dec 27, 2024 14:57
--- NOTE | 2024-12-27 19:40 | DVHPNRES ---
Progress Note Date Seen: Dec 27, 2024 Resident Creating Document: ADONIS SPEARS RESIDENT Has the PT tested + for MRSA If YES, has PT been informed?: No Medical Necessity Reason Pt with a Central, PICC or Fol: No Subjective Review of Systems Patient was examined at bedside, he reports no acute complaints. Patient was seen by Cardiology and scheduled for a transesophageal echocardiogram on 12/28/2024. Patient should continue on IV antibiotics vancomycin and piperacillin and tazobactam, and aspirin 81 daily and clopidogrel 75 mg daily. Patient reports: No new complaints Review of Systems: HEENT:Normal, CVS:Normal, RESPIRATORY:Normal, GI:Normal, :Normal, MSK:Normal, NEURO:Abnormal Objective vital signs Vital Sign Date Time Temp Pulse Resp B/P (MAP) Pulse Ox O2 Delivery O2 Flow Rate FiO2 12/27/24 17:00 97.4 70 16 144/85 (104) 96 97.4 12/27/24 08:04 Room Air* 0 21 Total Intake and Output 12/26/24 12/26/24 12/27/24 15:00 23:00 07:00 Intake Total 250 ml 460 ml 600 ml Output Total 500 ml Balance 250 ml 460 ml 100 ml medications Current Medications Medications Dose Ordered Sig/Connie Route Start Time Stop Time Status Last Admin Dose Admin Piperacillin Sod/ Tazobactam Sod 100 ml @ 25 mls/hr Q8HR IV 12/26/24 06:00 12/27/24 05:18 25 MLS/HR Vancomycin HCl 0 ml @ 0 mls/hr UD IV 12/26/24 05:30 Ondansetron HCl 4 mg Q4HPRN PRN IV 12/26/24 06:15 UNV Ondansetron HCl 4 mg Q6HPRN PRN IV 12/26/24 06:15 Pantoprazole Sodium 40 mg BID IV 12/26/24 10:00 12/26/24 21:52 40 MG Aspirin 81 mg DAILY PO 12/27/24 10:00 12/27/24 10:23 81 MG Clopidogrel Bisulfate 75 mg DAILY PO 12/27/24 10:00 12/27/24 10:23 75 MG Enoxaparin Sodium 40 mg DAILY SC 12/27/24 10:00 12/27/24 10:23 40 MG Vancomycin HCl 250 ml @ 250 mls/hr Q18H IV 12/27/24 11:00 12/27/24 14:00 250 MLS/HR Examination: GENERAL:Normal, HEENT:Normal, NECK:Normal, LUNGS:Normal, CVS:Normal, ABDOMEN:Normal, MSK:Abnormal, SKIN:Normal, NEURO:Abnormal, :Normal laboratory and microbiology Laboratory Tests 12/27/24 05:45 Test 12/27/24 05:45 Range/Units Serum Glucose 91 74-106 mg/dL Microbiology Date/Time Source Procedure Growth Status 12/26/24 23:30 Nose MRSA Screen - Final Complete 12/26/24 09:00 Urine - Midstream Clean Catch Urine Culture - Preliminary Resulted 12/25/24 20:08 Blood Blood Culture - Preliminary NO GROWTH AFTER 24 HOURS OF INCUBATION. Resulted Problem List/Assessment/Plan Problem List/Assessment/Plan # acute encephalopathy likely multifactorial due to chronic microvascular ischemic disease with old lacunar infarcts in the bilateral basal ganglia and kodak in the setting off Sepsis due to Gram-positive Gram-negative community- acquired pneumonia # multiple cerebrovascular accidents in the past, 7 per patient -admit to med surge - Continue IV antibiotics vancomycin and Zosyn. -Johnson catheter in place for accurate urine output -neurology consultation pending -aspirin 81 mg daily -clopidogrel 75 mg daily -ESVIN -cardiology on board. #NSTEMI type 2 likely due to sepsis, ischemic/demand -monitor -cardiology consultation was canceled patient refused ESVIN. #OLIVER due to VMN #Likely prerenal from sepsis -Continue IV fluids -Monitor creatinine and electrolytes. #Polysubstance abuse #Amphetamine abuse #Cocaine abuse #Alcohol abuse #Marijuana abuse #Nicotine dependency -Supportive care -Drug use cessation counseling #History of cerebrovascular accident #History of bilateral lower extremity amputation due to frostbite on 2022 #History of ischemic colitis #PPI prophylaxis -Pantoprazole 40 mg daily #DVT prophylaxis -Enoxaparin 40 subcutaneous Case discussed with Dr. Delaney Goals of care discussed with the patient for 31 minutes Code status: Full code Plan discussed with: Patient My Orders My Orders Orders - ADONIS SPEARS Procedure Category Date Status Time Transfer Orders XFER 12/27/24 Transmitted 16:23 ADONIS SPEARS RESIDENT Dec 27, 2024 19:40
[2024-12-27 21:57] LABS: INR 0.97 (0.9-1.15); Prothrombin Time 10.3 sec (9.3-11.8)
[2024-12-28] VITALS (8 sets, daily range): BP systolic 130–158; BP diastolic 88–100; PULSE 82–105; RESP 16–20; TEMP 97.9–98.1; O2SAT 95–100
[2024-12-28 06:49] LABS: Anion Gap 9 (5-15); Carbon Dioxide 21 mmol/L (20-31); Chloride 106 mmol/L (98-107); Potassium 4.2 mmol/L (3.5-5.1); Sodium 136 mmol/L (136-145)
[2024-12-28 06:50] LABS: Calcium 8.8 mg/dL (8.7-10.4)
[2024-12-28 06:55] LABS: BUN/Creatinine Ratio 10.9 (10.0-20.0); Blood Urea Nitrogen 12 mg/dL (9-23); Glucose 98 mg/dL (74-106)
[2024-12-28 07:26] LABS: Basophils # (auto) 0 10 ^3/uL (0-0.2); Basophils % (auto) 0.3 % (0.0-2.0); Eosinophils # (auto) 0.2 10 ^3/uL (0-0.8); Eosinophils % (auto) 1.9 % (0.0-7.0); Hematocrit 42.4 % (41.0-53.0); Hemoglobin 13.8 g/dL (13.5-17.5); Lymphocytes # (auto) 0.8 10 ^3/uL (0.4-5.4); Mean Corpuscular Hemoglobin 27.9 pg (28.0-32.0); Mean Corpuscular Hgb Conc. 32.5 g/dL (32.0-36.0); Mean Corpuscular Volume 85.7 fL (80.0-100.0); Monocytes # (auto) 0.8 10 ^3/uL (0-1.3); Monocytes % (auto) 7.7 % (0.0-12.0); Neutrophils # (auto) 8.4 10 ^3/uL (1.6-8.6); Neutrophils % (auto) 82.1 % (37.0-80.0); Nucleated Red Blood Cells % 0.2 %; Platelet Count (auto) 169 10^3/uL (140-450); Red Blood Cells 4.95 10^6/uL (4.5-5.90); Red Cell Distribution Width 14.5 % (11.8-14.3); White Blood Cell 10.3 10^3/uL (4.4-10.8)
[2024-12-28] MEDS: LIDOCAINE VISCOUS 2% 15ML UD PO ONE (10:07)
[2024-12-28] MEDS: MIDAZOLAM HCL 2MG/2ML 2ml VIAL (1mg/ml) IV ONE (10:10)
[2024-12-28] MEDS: fentaNYL CITRATE 100 MCG/2 ML VL IV ONE (10:12)
--- NOTE | 2024-12-28 10:26 | DVHOP2 ---
Operative Report - 2 Report Details Date: 12/28/24 Preop Diagnosis: CVA Postop Diagnosis: cardiomyopathy Surgeon: Cristela Conenlly MD Anesthesiologist: Conscious sedation Anesthesia: Mac ( Versed and fentanyl ordered at the initiation of the procedure. Patient was monitored throughout the entirety of the case.) Consent: The patient was informed of the risks and benefits of the procedure. These include but are not limited to complications of anesthesia, postoperative infection, incomplete relief of symptoms, recurrence of symptoms, damage to blood vessels, nerves and tendons, deep venous thrombosis, pulmonary embolism and possible need for repeat surgery in the future. Complications: No complications. Findings: Severe cardiomyopathy. Indications for Surgery: CVA Name of Procedure Performed Transesophageal echocardiogram Procedure Details Procedure Details: Prior full informed consent obtained the patient was Placed in the left lateral and semi-Mendez position followed by placement of the transesophageal probe after conscious sedation given and lidocaine gargle. Standard views obtained. Conclusions: Technically good study. Patient in a sinus rhythm. Biatrial and biventricular enlargement. Valves appear to be structurally normal. Left ventricular systolic performance is diminished. EF is about 15% with severe global hypokinesis. Diminished RV function. Doppler reveals mild to moderate MR and TR. No pericardial effusion. No intracardiac masses thrombi or vegetations discernible. A bubble study was performed showing no crossover into the left system. No atrial or ventricular septal defects noted. The atrial appendage she is within normal limits without thrombus noted. Condition Guarded Disposition Still a Patient Date of Service: Dec 28, 2024 Billing Provider: CRISTELA CONNELLY Sr., MD Cardiology Common Codes: 55155-OSYQIQD INP/OBS CARE (High) Cardiology Procedure Codes: 55388-YXG W/IMG DOC INCL PROB ACQ CRISTELA CONNELLY Sr., MD Dec 28, 2024 10:26
--- NOTE | 2024-12-28 10:37 | DVHPN2 ---
Consult Progress Note Date Seen: Dec 28, 2024 Subjective Review of Systems: CVS:Normal, RESPIRATORY:Normal, NEURO:Normal Objective vital signs Vital Sign Date Time Temp Pulse Resp B/P (MAP) Pulse Ox O2 Delivery O2 Flow Rate FiO2 12/28/24 09:00 98.1 105 20 158/93 (114) 95 98.1 12/28/24 08:00 Room Air* 0 21 Total Intake and Output 12/27/24 12/27/24 12/28/24 15:00 23:00 07:00 Intake Total 230 ml 500 ml 100 ml Output Total 1250 ml Balance 230 ml 500 ml -1150 ml medications Current Medications Medications Dose Ordered Sig/Connie Route Start Time Stop Time Status Last Admin Dose Admin Piperacillin Sod/ Tazobactam Sod 100 ml @ 25 mls/hr Q8HR IV 12/26/24 06:00 12/28/24 06:24 25 MLS/HR Vancomycin HCl 0 ml @ 0 mls/hr UD IV 12/26/24 05:30 Ondansetron HCl 4 mg Q4HPRN PRN IV 12/26/24 06:15 UNV Ondansetron HCl 4 mg Q6HPRN PRN IV 12/26/24 06:15 Pantoprazole Sodium 40 mg BID IV 12/26/24 10:00 12/28/24 08:41 40 MG Aspirin 81 mg DAILY PO 12/27/24 10:00 12/27/24 10:23 81 MG Clopidogrel Bisulfate 75 mg DAILY PO 12/27/24 10:00 12/27/24 10:23 75 MG Enoxaparin Sodium 40 mg DAILY SC 12/27/24 10:00 12/28/24 08:43 40 MG Vancomycin HCl 250 ml @ 250 mls/hr Q18H IV 12/27/24 11:00 12/28/24 04:44 250 MLS/HR Examination: LUNGS:Normal, CVS:Normal, NEURO:Normal laboratory and microbiology Laboratory Tests 12/28/24 06:19 Test 12/28/24 06:19 Range/Units Serum Glucose 98 74-106 mg/dL Problem List/Assessment/Plan Problem List/Assessment/Plan Multiple chronic strokes rule out cardioembolic source Chronic compensated HFrEF, NYHA Class II, newly diagnosed Biventricular heart failure Hypertension Dyslipidemia Bilateral BKA Polysubstance abuse Nicotine dependence Plan/Recommendation (Dr. Connelly) Transesophageal echocardiogram revealed an LVEF of 15% with no evidence of intracardiac shunt and unremarkable left atrial appendage. Polysubstance abuse may be the culprit of strokes, nevertheless the patient can benefit from an outpatient event monitor to rule out tachyarrhythmias. Initiate GDMT for CHF and uptitrate as tolerated. Patient does not qualify for a LifeVest given poor medical compliance at this time. Follow-up with a Plating Engineer within 3-4 weeks post-discharge. Kindly call if further recommendations needed. Thank you for allowing us to participate in this patient's care. This medical document was created using an electronic medical record system with voice recognition software and computerized dictation system. Although this document has been carefully reviewed, there might still be some phonetic and typographical errors. Occasional wrong-word or ``sound-alike substitutions may have occurred due to the inherent limitations of voice recognition software. These areas are purely typographical due to imperfections of the software programs and do not reflect any compromise in the patient's medical care. Please read the chart carefully and recognize, using context, where these substitutions have occurred. Plan discussed with: Patient, Other Date of Service: Dec 28, 2024 Billing Provider: BRADEN LEVI Cardiology Common Codes: [id number] HOSP CARE(High BRADEN LEVI Dec 28, 2024 10:37
--- NOTE | 2024-12-28 21:32 | DVHPN2 ---
Progress Note - Dictate Date Seen: Dec 28, 2024 Has the PT tested + for MRSA If YES, has PT been informed?: No Medical Necessity Reason Pt with a Central, PICC or Fol: No Subjective Mr. Garner is a 54 years old gentleman with a history of hypertension, dyslipidemia, multiple strokes, status post bilateral BKA, the patient was came to the hospital on 12/25/2024 with a chief company of shortness breath. On scene, the EMS personnel noted the patient was lethargic, and with pulse ox in the mid 80s and the patient was treated accordingly. I have seen and examined the patient, I have talked to his nurse, he is doing fine, awake, oriented to person, place, he knows year and the month. UDS, 12/26/2024: Fentanyl, amphetamine, cannabinoids Urinalysis, 12/26/2024: WBC: 2, urine leukocyte esterase: Negative WBC/HB/PLT/MCV, 12/26/2024: 13.7/13.3/169/81.3 BUN/CR, 12/26/2024: 16/1.31 Liver function tests, 12/26/2024: Unremarkable TG/HDL/LDL/HDL, 12/26/2024: 94/140/85/43 Vitamin B12, 12/26/2024: 425 TSH, 12/26/2024: 0.46 ESVIN, 12/28/2024: Technically good study. Patient in a sinus rhythm. Biatrial and biventricular enlargement. Valves appear to be structurally normal. Left ventricular systolic performance is diminished. EF is about 15% with severe global hypokinesis. Diminished RV function. Doppler reveals mild to moderate MR and TR. No pericardial effusion. No intracardiac masses thrombi or vegetations discernible. A bubble study was performed showing no crossover into the left system. No atrial or ventricular septal defects noted. The atrial appendage she is within normal limits without thrombus noted. Extremity venous study, 12/26/2024: No right or left femoropopliteal venous thrombosis Carotid Doppler, 12/27/2024: No hemodynamically significant stenosis noted in the right carotid system. No hemodynamically significant stenosis noted in the left carotid system. CT head, 12/25/2024: Evidence for extensive ischemic disease as indicated by multiple infarcts in the basal ganglia bilateral thalamus and in the white matter of the putamen. Follow-up MRI examination is suggested No acute infarcts appreciated this time MRI head, 12/26/2024: No evidence of acute infarction, intracranial hemorrhage, mass effect or hydrocephalus. Moderate changes of chronic microvascular ischemic disease with old lacunar infarcts in the bilateral basal ganglia and [place] vital signs Vital Sign Date Time Temp Pulse Resp B/P (MAP) Pulse Ox O2 Delivery O2 Flow Rate FiO2 12/28/24 17:00 97.9 98 18 148/88 (108) 100 97.9 12/28/24 08:00 Room Air* 0 21 Total Intake and Output 12/27/24 12/27/24 12/28/24 15:00 23:00 07:00 Intake Total 230 ml 500 ml 100 ml Output Total 1250 ml Balance 230 ml 500 ml -1150 ml medications Current Medications Medications Dose Ordered Sig/Connie Route Start Time Stop Time Status Last Admin Dose Admin Piperacillin Sod/ Tazobactam Sod 100 ml @ 25 mls/hr Q8HR IV 12/26/24 06:00 12/28/24 13:45 25 MLS/HR Vancomycin HCl 0 ml @ 0 mls/hr UD IV 12/26/24 05:30 Ondansetron HCl 4 mg Q4HPRN PRN IV 12/26/24 06:15 UNV Ondansetron HCl 4 mg Q6HPRN PRN IV 12/26/24 06:15 Pantoprazole Sodium 40 mg BID IV 12/26/24 10:00 12/28/24 08:41 40 MG Aspirin 81 mg DAILY PO 12/27/24 10:00 12/28/24 13:45 81 MG Clopidogrel Bisulfate 75 mg DAILY PO 12/27/24 10:00 12/28/24 13:44 75 MG Enoxaparin Sodium 40 mg DAILY SC 12/27/24 10:00 12/28/24 08:43 40 MG Vancomycin HCl 250 ml @ 250 mls/hr Q18H IV 12/27/24 11:00 12/28/24 04:44 250 MLS/HR Carvedilol 3.125 mg Q12HR PO 12/28/24 22:00 Empaglifozin 10 mg DAILY PO 12/29/24 10:00 Spironolactone 12.5 mg DAILY PO 12/29/24 10:00 Sacubitril/ Valsartan 0.5 tab BID PO 12/28/24 22:00 objective General: the patient is well developed and nourished. No acute distress. MUSCULOSKELETAL EXAM: Status post bilateral BKA MENTAL STATUS: Awake and alert. Oriented to person, place, he knows year and the month, poor historian SPEECH, LANGUAGE, HIGHER CORTICAL FUNCTION: no aphasia or dysathria. CRANIAL NERVES: Pupils are equal, round and reactive. EOMs full and conjugate. No nystagmus. Facial sensation intact in all three divisions bilaterally. Mandibular strength intact. Facial muscles symmetrical and strength intact. SENSATION: Sensation to touch and pinprick is normal. MOTOR: Normal tone in the upper and lower extremity. Normal muscle bulk. No fasciculations. No abnormal movements or posturing. Muscle strength of the major groups in the upper extremities is: Rt: 4/5, Lt: 4-5/5. Muscle strength of the major groups in the lower extremities is 3-4/5. REFLEXES: Deep tendon reflexes normal and symmetrical. No pathological reflexes. CEREBELLAR/COORDINATION: Finger to nose is unremarkable bilaterally. GAIT/STATION: deferred. laboratory and microbiology Laboratory Tests 12/28/24 06:19 Test 12/28/24 06:19 Range/Units Serum Glucose 98 74-106 mg/dL Problem List Multiple strokes Residual right-sided weakness Altered mental status Metabolic encephalopathy Hypoxic encephalopathy Toxic encephalopathy Status post bilateral BKA Substance abuse Assessment/Plan Monitoring Supportive treatment Telemetry Aspirin 81 mg daily Lipitor 20 mg daily IV antibiotics GI prophylaxis More recommendation per clinical course This medical document was created using an electronic medical record system with [employer] dictation system. Although this document has been carefully reviewed, there may still be some phonetic and typographical errors. These areas are purely typographical due to imperfections of the software programs, and do not reflect any compromise in the patient's medical care Prognosis poor Plan discussed with: Other RIANNA HAN MD Dec 28, 2024 21:32
[2024-12-28] MEDS: SACUBITRIL-VALSARTAN 24mg/26mg TAB PO SCH (22:05)
[2024-12-28] MEDS: CARVEDILOL 3.125 MG TAB PO SCH (22:05)
--- NOTE | 2024-12-28 23:13 | DVHPNRES ---
Progress Note Date Seen: Dec 28, 2024 Resident Creating Document: ADONIS SPEARS RESIDENT Has the PT tested + for MRSA If YES, has PT been informed?: No Medical Necessity Reason Pt with a Central, PICC or Fol: No Subjective Review of Systems Patient was examined at bedside, he denies any acute complaint. William was done today, no evidence of intracardiac shunt until an unremarkable left atrial appendage, left ventricular ejection fraction was noted to be severely decreased on 15%. Polysubstance abuse we will be the cause of recurrent strokes patient will need to follow up with Cardiology in the outpatient to rule out arrhythmias, DD MT was started and a podiatry as tolerated. Patient does not qualify for LifeVest given poor medical compliance. Possible discharge tomorrow. Patient reports: No new complaints Changes from previous H/P or p: No Changes Review of Systems: HEENT:Normal, CVS:Normal, RESPIRATORY:Normal, GI:Normal, :Normal, NEURO:Normal Objective vital signs Vital Sign Date Time Temp Pulse Resp B/P (MAP) Pulse Ox O2 Delivery O2 Flow Rate FiO2 12/28/24 22:05 98 142/98 12/28/24 17:00 97.9 18 100 97.9 12/28/24 08:00 Room Air* 0 21 Total Intake and Output 12/27/24 12/27/24 12/28/24 15:00 23:00 07:00 Intake Total 230 ml 500 ml 100 ml Output Total 1250 ml Balance 230 ml 500 ml -1150 ml medications Current Medications Medications Dose Ordered Sig/Connie Route Start Time Stop Time Status Last Admin Dose Admin Piperacillin Sod/ Tazobactam Sod 100 ml @ 25 mls/hr Q8HR IV 12/26/24 06:00 12/28/24 21:57 25 MLS/HR Vancomycin HCl 0 ml @ 0 mls/hr UD IV 12/26/24 05:30 Ondansetron HCl 4 mg Q4HPRN PRN IV 12/26/24 06:15 UNV Ondansetron HCl 4 mg Q6HPRN PRN IV 12/26/24 06:15 Pantoprazole Sodium 40 mg BID IV 12/26/24 10:00 12/28/24 22:04 40 MG Aspirin 81 mg DAILY PO 12/27/24 10:00 12/28/24 13:45 81 MG Clopidogrel Bisulfate 75 mg DAILY PO 12/27/24 10:00 12/28/24 13:44 75 MG Enoxaparin Sodium 40 mg DAILY SC 12/27/24 10:00 12/28/24 08:43 40 MG Vancomycin HCl 250 ml @ 250 mls/hr Q18H IV 12/27/24 11:00 12/28/24 04:44 250 MLS/HR Carvedilol 3.125 mg Q12HR PO 12/28/24 22:00 12/28/24 22:05 3.125 MG Empaglifozin 10 mg DAILY PO 12/29/24 10:00 Spironolactone 12.5 mg DAILY PO 12/29/24 10:00 Sacubitril/ Valsartan 0.5 tab BID PO 12/28/24 22:00 12/28/24 22:05 0.5 TAB Examination: GENERAL:Normal, HEENT:Normal, NECK:Normal, LUNGS:Normal, CVS:Abnormal, ABDOMEN:Normal, MSK:Normal, SKIN:Normal, NEURO:Normal, :Normal laboratory and microbiology Laboratory Tests 12/28/24 06:19 Test 12/28/24 06:19 Range/Units Serum Glucose 98 74-106 mg/dL Microbiology Date/Time Source Procedure Growth Status 12/26/24 23:30 Nose MRSA Screen - Final Complete 12/26/24 09:00 Urine - Midstream Clean Catch Urine Culture - Final Complete 12/25/24 20:08 Blood Blood Culture - Preliminary NO GROWTH AFTER 72 HOURS OF INCUBATION. Resulted Problem List/Assessment/Plan Problem List/Assessment/Plan # acute encephalopathy likely multifactorial due to chronic microvascular ischemic disease with old lacunar infarcts in the bilateral basal ganglia and [place] in the setting off Sepsis due to Gram-positive Gram-negative community- acquired pneumonia # multiple cerebrovascular accidents in the past, 7 per patient # recurrent strokes likely due to polysubstance abuse # intracardiac shunt ruled out -admit to med surge - Continue IV antibiotics vancomycin and Zosyn. -Johnson catheter in place for accurate urine output -neurology consultation pending -aspirin 81 mg daily -clopidogrel 75 mg daily -WILLIAM -cardiology on board. # heart failure reduced ejection fraction 50% #NSTEMI type 2 likely due to sepsis, ischemic/demand -monitor -patient was started on GDMT #OLIVER due to VMN #Likely prerenal from sepsis -Continue IV fluids -Monitor creatinine and electrolytes. #Polysubstance abuse #Amphetamine abuse #Cocaine abuse #Alcohol abuse #Marijuana abuse #Nicotine dependency -Supportive care -Drug use cessation counseling #History of cerebrovascular accident #History of bilateral lower extremity amputation due to frostbite on 2022 #History of ischemic colitis #PPI prophylaxis -Pantoprazole 40 mg daily #DVT prophylaxis -Enoxaparin 40 subcutaneous Case discussed with Dr. Delaney Goals of care discussed with the patient for 31 minutes Code status: Full code Plan discussed with: Patient ADONIS SPEARS RESIDENT Dec 28, 2024 23:13
[2024-12-29 01:00] VITALS: BP 129/82; PULSE 88; RESP 18; TEMP 97.9; O2SAT 98
[2024-12-29 04:55] VITALS: BP_SYST 145; BP_DIAS 104; BP_DIAS 145; PULSE 97; RESP 18; TEMP 98; O2SAT 100
[2024-12-29 08:00] VITALS: PULSE 104; PULSE 91; O2SAT 99
[2024-12-29 09:00] VITALS: BP 142/96; PULSE 89; RESP 19; TEMP 97.8; O2SAT 99
[2024-12-29] MEDS: EMPAGLIFLOZIN 10 MG TAB PO SCH (09:05)
[2024-12-29] MEDS: SPIRONOLACTONE 25 MG TAB PO SCH (09:06)
[2024-12-29 11:43] VITALS: BP 140/83; PULSE 80; RESP 19; TEMP 97.8; O2SAT 98
[2024-12-29] MEDS ORDERED: CARV-214 PO (12:37)
[2024-12-29] MEDS ORDERED: CLOP75TA70 PO (12:37)
[2024-12-29] MEDS ORDERED: ASPI-543 PO (12:37)
[2024-12-29] MEDS ORDERED: EMPA1TAB PO (12:37)
[2024-12-29] MEDS ORDERED: SACU1TAB PO (12:37)
[2024-12-29] MEDS ORDERED: SPIR25TA PO (12:37)
--- NOTE | 2024-12-29 12:43 | DVHDSRES ---
Discharge Summary Date of Admission Resident Creating Document: ADONIS SPEARS RESIDENT Dec 26, 2024 at 05:20 Date of Discharge: Dec 29, 2024 Labs/Diagnostic Data: Laboratory Results Test 12/29/24 06:20 12/28/24 21:45 12/28/24 06:19 12/27/24 20:50 Creatinine 1.17 mg/dL (0.700-1.30) Glomerular Filtration Rate Calc 75 mL/min (>90) Vancomycin Level Trough 9.4 ug/mL (5-10) White Blood Count 10.3 10^3/uL (4.4-10.8) Red Blood Count 4.95 10^6/uL (4.5-5.90) Hemoglobin 13.8 g/dL (13.5-17.5) Hematocrit 42.4 % (41.0-53.0) Mean Corpuscular Volume 85.7 fL (80.0-100.0) Mean Corpuscular Hemoglobin 27.9 pg (28.0-32.0) Mean Corpuscular Hemoglobin Concent 32.5 g/dL (32.0-36.0) Red Cell Distribution Width 14.5 % (11.8-14.3) Platelet Count 169 10^3/uL (140-450) Mean Platelet Volume 8.0 fL (6.9-10.8) Neutrophils (%) (Auto) 82.1 % (37.0-80.0) Lymphocytes (%) (Auto) 8.0 % (10.0-50.0) Monocytes (%) (Auto) 7.7 % (0.0-12.0) Eosinophils (%) (Auto) 1.9 % (0.0-7.0) Basophils (%) (Auto) 0.3 % (0.0-2.0) Neutrophils # (Auto) 8.4 10 ^3/uL (1.6-8.6) Lymphocytes # (Auto) 0.8 10 ^3/uL (0.4-5.4) Monocytes # (Auto) 0.8 10 ^3/uL (0-1.3) Eosinophils # (Auto) 0.2 10 ^3/uL (0-0.8) Basophils # (Auto) 0 10 ^3/uL (0-0.2) Nucleated Red Blood Cells 0.2 % Sodium Level 136 mmol/L (136-145) Potassium Level 4.2 mmol/L (3.5-5.1) Chloride Level 106 mmol/L (98-107) Carbon Dioxide Level 21 mmol/L (20-31) Anion Gap 9 (5-15) Blood Urea Nitrogen 12 mg/dL (9-23) BUN/Creatinine Ratio 10.9 (10.0-20.0) Serum Glucose 98 mg/dL (74-106) Calcium Level 8.8 mg/dL (8.7-10.4) Prothrombin Time 10.3 sec (9.3-11.8) Prothrombin Time INR 0.97 (0.9-1.15) Test 12/27/24 05:45 12/26/24 09:00 12/26/24 07:00 12/26/24 05:45 Random Vancomycin Level 6.4 ug/mL (5-10) Urine Color Yellow (Yellow) Urine Clarity Clear (Clear) Urine pH 5.5 (5.0-9.0) Urine Specific [place] 1.023 (1.001-1.035) Urine Protein Negative (Negative) Urine Ketones Negative (Negative) Urine Blood Negative /uL (Negative) Urine Nitrite Negative (Negative) Urine Bilirubin Negative (Negative) Urine Urobilinogen Normal mg/dL (Negative) Urine Leukocyte Esterase Negative /uL (Negative) Urine RBC 1 /hpf (0 - 3) Urine Microscopic WBC 2 /HPF (0-3) Urine Squamous Epithelial Cells None seen /hpf (<5) Urine Bacteria None seen /hpf (None Seen) Urine Mucus Few (None Seen) Urine Glucose Normal mg/dL (Normal) Urine Opiates Screen Neg (NEGATIVE) Urine Fentanyl Screen Pos (NEGATIVE) Urine Barbiturates Screen Neg (NEGATIVE) Urine Phencyclidine Screen Neg (NEGATIVE) Urine Amphetamines Screen Pos (NEGATIVE) Urine Benzodiazepines Screen Neg (NEGATIVE) Urine Cocaine Screen Neg (NEGATIVE) Urine Cannabinoids Screen Pos (NEGATIVE) Influenza Type A Antigen Negative (Negative) Influenza Type B Antigen Negative (Negative) SARS-CoV-2 Antigen (Rapid) Negative (NEGATIVE) D-Dimer, Quantitative 1.23 mg/L FEU (0.0-0.49) Hemoglobin A1c 5.3 % A1C (<5.7) Total Bilirubin 0.8 mg/dL (0.2-1.0) Aspartate Amino Transferase (AST) 16 U/L (13-40) Alanine Aminotransferase (ALT) 14 U/L (7-40) Alkaline Phosphatase 90 U/L (46-116) Troponin I High Sensitivity 109 ng/L (</=54) Total Protein 5.5 g/dL (5.7-8.2) Albumin 3.5 g/dL (3.2-4.8) Triglycerides Level 94 mg/dL (< 150) Cholesterol Level 140 mg/dL (< 200) LDL Cholesterol 85 mg/dL (< 100) HDL Cholesterol 43 mg/dL (40-59) Vitamin B12 Level 425 pg/mL (211-911) Thyroid Stimulating Hormone (TSH) 0.46 uIU/mL (0.55-4.78) Plasma/Serum Blood Alcohol < 3.0 mg/dL (<10) Test 12/26/24 01:43 12/25/24 18:59 Lactic Acid Level 0.9 mmol/L (0.4-2.0) Hepatitis B Surface Antibody Negative (Negative) Hepatitis C Antibody Negative (Negative) Ammonia < 10 umol/L (11-32) Other Laboratory Tests 12/29/24 06:20 12/28/24 06:19 Brief Hx & Hospital Course: HPI: 54-year-old male with past medical history of hypertension, cerebrovascular accident, ischemic colitis, frostbite in 2022 with bilateral lower extremities amputation who presents with shortness of breaths. Hospital course: He was found to have left-sided airspace disease on chest x-ray suspicious for pneumonia he was started on empiric antibiotics with vancomycin and Zosyn. Urine toxicology was positive for amphetamine cocaine alcohol marijuana nicotine. White blood cell count has improved from 18.1-13.7 suggesting partial resolution of leukocytosis and hemoglobin decreased from 16.3-13.3 likely due to hemodilution, we will monitor this closely. Troponin was elevated at 109 possibly in the setting of sepsis without clear evidence of myocardial infarction or any cardiac disease. Creatinine was mildly elevated at 1.23 likely due to sepsis related hypoperfusion. CT head revealed chronic ischemic changes with multiple infarcts in the bilateral basal ganglia, thalamus and white matter of the potassium and. MRI showed no acute infarct or mass effect but chronic microvascular ischemic disease with old lacunar infarcts in the basal ganglia and kodak. DVT ultrasound was negative for thrombosis.Transesophageal echocardiogram revealed an LVEF of 15% with no evidence of intracardiac shunt and unremarkable left atrial appendage, polysubstance abuse would be the cause of strokes. GDMT for CHF was initiated. Patient does not qualify for a LifeVest given poor medical compliance at this time. Follow-up with a [facility] within 3-4 weeks post- discharge. Disposition: Discharge to home. Operations or Procedures [place] [address] Ph: [phone] DIAGNOSTIC IMAGING Diagnostic Imaging Report : [id number] Signed PATIENT: TAINA QUILES ACCT: [id number] UNIT: [id number] : 1970 LOC: CENTRAL ROOM / BED: [address] [place] [address] AGE / SEX: 54 / M ADM STATUS: ADM IN SERVICE 0700 ORDERING PHYSICIAN: RIANNA HAN MD PROCEDURE(s): CARCL - CAROTID DUPLX W COLOR DOP REASON: Stroke ORDER NUMBER(s): [id number], ACCESSION NUMBER(s): [id number] Carotid Duplex Date: 12/27/2024 08:19 AM Clinical History: Stroke Comparison: None Technique: Duplex Doppler evaluation of the extracranial carotid and vertebral arteries including color Doppler and spectral/pulsed waveform analysis was performed. Findings: Velocities and ratios within normal limits. IMPRESSION: No hemodynamically significant stenosis noted in the right carotid system. No hemodynamically significant stenosis noted in the left carotid system. Reference: Radiology 2003; [id number] ATED BY: BOLIVAR CAICEDO MD DICTATED DATE/TIME: 12/27/241056 SIGNED BY: BOLIVAR CAICEDO MD SIGNED DATE/TIME: 12/27/241056 CC: [place] [address] Ph: [phone] DIAGNOSTIC IMAGING Diagnostic Imaging Report : [id number] Signed PATIENT: TAINA QUILES ACCT: [id number] UNIT: [id number] : 1970 LOC: CENTRAL ROOM / BED: [address] [place] [address] AGE / SEX: 54 / M ADM STATUS: ADM IN SERVICE 0850 ORDERING PHYSICIAN: GREER,TIANNA RESIDENT PROCEDURE(s): BLDVT - BiLat Lower DVT REASON: dvt to rul out. ORDER NUMBER(s): [id number], ACCESSION NUMBER(s): [id number] Bilateral lower extremity venous duplex Clinical History: Pain, dvt to rul out. Comparison: None Technique: Duplex Doppler evaluation of the deep venous systems of both lower extremities from the common femoral veins to the popliteal veins including color Doppler and spectral/pulsed waveform analysis was performed. Findings: RIGHT SIDE: The common femoral vein demonstrates appropriate compressibility and waveform variability. There is compressibility/patency of the great saphenous vein at the proximal thigh. The femoral vein demonstrates appropriate compressibility and waveform variability. The deep femoral vein demonstrates appropriate compressibility and waveform variability. The popliteal vein, posterior tibial vein and trifurcation are not visualized due to patient's amputation. LEFT SIDE: The common femoral vein demonstrates appropriate compressibility and waveform variability. There is compressibility/patency of the great saphenous vein at the proximal thigh. The femoral vein demonstrates appropriate compressibility and waveform variability. The deep femoral vein demonstrates appropriate compressibility and waveform variability. The popliteal vein demonstrates appropriate compressibility and waveform variability. The left posterior tibial vein not visualized due to patient's amputation. Impression: No right or left femoropopliteal venous thrombosis. ATED BY: PETAR DODD MD DICTATED DATE/TIME: 12/26/241138 SIGNED BY: PETAR DODD MD SIGNED DATE/TIME: 12/26/241138 CC: [place] [address] Ph: [phone] DIAGNOSTIC IMAGING Diagnostic Imaging Report : [id number] Signed PATIENT: TAINA QUILES ACCT: [id number] UNIT: [id number] : 1970 LOC: CENTRAL ROOM / BED: [facility] / B AGE / SEX: 54 / M ADM STATUS: ADM IN SERVICE 0837 ORDERING PHYSICIAN: TIANNA BUTTERFIELD PROCEDURE(s): MBHL - BRAIN HEAD WO CONTRAST REASON: ? ischemic changes. ORDER NUMBER(s): [id number], ACCESSION NUMBER(s): [id number] PROCEDURE: MRI BRAIN HEAD WO CONTRAST INDICATION: ischemic changes. EXAM DATE: 12/26/2024 09:49 AM COMPARISON: None TECHNIQUE: MRI of the brain without intravenous contrast. FINDINGS: Diffusion weighted images of the brain demonstrate no evidence of acute infarction. There is no evidence of acute intracranial hemorrhage, extra-axial collection, mass effect, midline shift, herniation or hydrocephalus. The ventricles, sulci and cisterns appear age appropriate. Moderate changes of chronic microvascular ischemic disease with old lacunar infarcts in the bilateral basal ganglia and kodak. There are no signal abnormalities on the susceptibility weighted sequences. The major vascular flow voids are present. Sinus mucosal thickening bilateral maxillary and ethmoid sinuses. The surrounding soft tissues and osseous structures are unremarkable. IMPRESSION: 1. No evidence of acute infarction, intracranial hemorrhage, mass effect or hydrocephalus. Moderate changes of chronic microvascular ischemic disease with old lacunar infarcts in the bilateral basal ganglia and kodak. HS:Y ATED BY: DG PAPPAS MD DICTATED DATE/TIME: 12/26/24 1032 SIGNED BY: DG PAPPAS MD SIGNED DATE/TIME: 12/26/24 1032 CC: [place] [address] Ph: [phone] DIAGNOSTIC IMAGING Diagnostic Imaging Report : [id number] Signed PATIENT: TAINA QUILES ACCT: [id number] UNIT: [id number] : 1970 LOC: ER ROOM / BED: / AGE / SEX: 54 / M ADM STATUS: REG ER SERVICE 38 ORDERING PHYSICIAN: TRISH VILLAFUERTE MD PROCEDURE(s): HWOCT - HEAD WITHOUT CONTRAST REASON: altered ORDER NUMBER(s): [id number], ACCESSION NUMBER(s): [id number] EXAM: CT HEAD WITHOUT CONTRAST INDICATION: altered mental status TECHNIQUE: CT of the head without intravenous contrast. Radiation Dose : 1. Head: CT Dose: CTDI volume is 50.75 mGy. Dose-length product is 813.66 mGy*cm The dose indicators for CT are the volume Computed Tomography (CT) Dose Index (CTDIvol) and the Dose Length Product (DLP), and are measured in units of mGy and mGy-cm, respectively. These indicators are not patient dose, but values generated from the CT scanner acquisition factors. The report includes radiation exposure data for exposures received during this examination. COMPARISON: No prior studies of the head FINDINGS: There is mild cortical atrophy and there is evidence for old lacunar infarcts involving the heads of caudate bilaterally and is evidence for ischemia possible small infarcts involving the external capsules bilaterally more extensive on the left than the right. There is also some evidence for lacunar infarcts involving the right and left thalamus. There is also evidence for old infarcts involving the white matter of the putamen. No acute infarcts or intracranial hemorrhage are appreciated. Midline shifts or focal mass effects the hippocampal structures are symmetric. IMPRESSION: Evidence for extensive ischemic disease as indicated by multiple infarcts in the basal ganglia bilateral thalamus and in the white matter of the putamen. Follow-up MRI examination is suggested No acute infarcts appreciated this time Radiation optimization: All CT scans at this facility use at least one of these dose optimization techniques: automated exposure control mA and/or kV adjustment per patient size (includes targeted exams where dose is matched to clinical indication) or iterative reconstruction. ATED BY: TOBIN YEAGER MD DICTATED DATE/TIME: 12/25/241931 SIGNED BY: TOBIN YEAGER MD SIGNED DATE/TIME: 12/25/241931 CC: [place] [address] Ph: [phone] DIAGNOSTIC IMAGING Diagnostic Imaging Report : [id number] Signed PATIENT: TAINA QUILES ACCT: [id number] UNIT: [id number] : 1970 LOC: ER ROOM / BED: / AGE / SEX: 54 / M ADM STATUS: REG ER SERVICE 38 ORDERING PHYSICIAN: TRISH VILLAFUERTE MD PROCEDURE(s): CXRP - CHEST PORTABLE REASON: sob ORDER NUMBER(s): [id number], ACCESSION NUMBER(s): [id number] CHEST RADIOGRAPH Indication: sob Technique: Single frontal view of the chest was obtained Comparison: None FINDINGS: Lines and Tubes: None Lungs: Ill-defined density in the left mid lung field. This may represent airspace disease or ill-defined mass. Pleura: No effusion. No pneumothorax. Cardiomediastinal contours: Unremarkable Bones: No acute osseous abnormality. IMPRESSION: 1. Possible left lower lung field airspace disease or ill-defined mass. HS:Y ATED BY: ADRIANA VARGAS Jr., DO DICTATED DATE/TIME: 12/25/241942 SIGNED BY: ADRIANA VARGAS Jr., SIGNED DATE/TIME: 12/25/241942 CC: Condition at Discharge: Fair Final Diagnosis/Problems List # acute encephalopathy likely multifactorial due to chronic microvascular ischemic disease with old lacunar infarcts in the bilateral basal ganglia and kodak # multiple cerebrovascular accidents in the past, 7 per patient # recurrent strokes likely due to polysubstance abuse # intracardiac shunt ruled out # heart failure reduced ejection fraction 50% #NSTEMI type 2 likely due to sepsis, ischemic/demand #OLIVER due to VMN #Likely prerenal from sepsis #Polysubstance abuse #Amphetamine abuse #Cocaine abuse #Alcohol abuse #Marijuana abuse #Nicotine dependency #History of cerebrovascular accident #History of bilateral lower extremity amputation due to frostbite on 2022 #History of ischemic colitis Discharge Disposition: Home SNF Discharge Will this Physician continue t: No Discharge Instruct/Medications Diet: Cardiac 2g Na,low cholest Activity: Light activity Follow Up/Referral: follow up with pcp within2 weeks follow up with cardiology within 2 weeks Medications: script to pharmacy Discharge Statement: "Patient was advised to return to the ER or call 911 if any headaches, dizziness, shortness of breath, chest pain, abdominal pain, bleeding, fevers, or worsening of medical condition. Patient was counseled about treatment plan, medications, possible side effects, patientverbalized understanding. All questions were answered to the best of my ability. This discharge took greater then 30 minutes in planning, reviewing documentation, counseling the patient, and discussing with other team members." ASSESSMENT ASSESSMENT Assessment Cardiomyopathy ADONIS SPEARS RESIDENT Dec 29, 2024 12:43
[2024-12-29 12:56] VITALS: BP 138/96; PULSE 87; RESP 16; TEMP 98.7; O2SAT 97
[2024-12-29] MEDS ORDERED: VANCOMYCIN 1GM/250ML KIT 250 ML IV SCH (13:00)
== END 2024-12-29 13:40 | disposition home or self-care (01) | DRG 871 ==
LOC: ER 17:54 → EDBD 17:54 → OVERFLOW 12-26 05:20 → CENTRAL 12-26 05:37 → TELE-CENTR 12-27 16:56
PROVIDERS: ADMIT Student in an Organized Health Care Education/Training Program; ATTEND Student in an Organized Health Care Education/Training Program
PROC: B24BZZ4 Ultrasonography of Heart with Aorta, Transesophageal (ICD-10-PCS; principal; 2024-12-28)
DX: A41.50 Gram-negative sepsis, unspecified (principal); G92.8 Other toxic encephalopathy; I21.A1 Myocardial infarction type 2; N17.0 Acute kidney failure with tubular necrosis; J15.69 Pneumonia due to other Gram-negative bacteria; J15.9 Unspecified bacterial pneumonia; E87.20 Acidosis, unspecified; I50.22 Chronic systolic (congestive) heart failure; I69.951 Hemiplegia and hemiparesis following unspecified cerebrovascular disease affecting right dominant side; G93.1 Anoxic brain damage, not elsewhere classified; Z20.822 Contact with and (suspected) exposure to COVID-19; D64.9 Anemia, unspecified; I11.0 Hypertensive heart disease with heart failure; F15.10 Other stimulant abuse, uncomplicated; F14.10 Cocaine abuse, uncomplicated; K21.9 Gastro-esophageal reflux disease without esophagitis; F19.10 Other psychoactive substance abuse, uncomplicated; F10.10 Alcohol abuse, uncomplicated; Z89.512 Acquired absence of left leg below knee; Z89.511 Acquired absence of right leg below knee; Z79.899 Other long term (current) drug therapy; Z87.891 Personal history of nicotine dependence; Z79.82 Long term (current) use of aspirin
CPT/HCPCS: 36415; 70450; 70551; 71045; 80048; 80053; 80061; 80202; 80307; 80320; 81001; 82140; 82565; 82607; 83036; 83605; 84443; 84484; 85014; 85018; 85025; 85379; 85610; 86706; 86803; 87040; 87081; 87086; 87426; 87804; 93005; 93312; 93886; 93970; 96361; 96365; 99152; 99291; G0378; J2250; J2470; J2543